=== PATIENT | female | born 1945 | race Caucasian/White ===

== ENCOUNTER 2024-07-08 08:45 | Outpatient (CLI) | payer MEDICARE, SELFPAY ==
--- NOTE | ~2024-07-08 | CT_ITS ---
Clinical Indication: Cough CT Scan of the Chest, Abdomen, and Pelvis with Contrast: Technique: Contiguous sections were acquired throughout the chest, abdomen, and pelvis after intraven ous administration of 100 cc of Omnipaque 350. Dose reduction technique was used on this scan by josseline zambranoing automated exposure control and iterative reconstruction technique. The dose-length product (DL P) was 303.29 mGy-cm. Findings: There are a few mildly prominent mediastinal lymph nodes, nonspecific, for example lymph node to the left side in the subcarinal region measuring 11 mm in short axis (series axial image 49). Precarinal lymph node measures 13 mm in short axis (axial image 38).. No aortic aneurysm or dissection. No large central pulmonary embolus. There is a 2.7 x 1.8 cm lobulated mass in the left subareolar region. There is additional smaller mas s in the more lateral left breast measuring 1.4 cm (axial images 56, 53 respectively). There is a thi rd probable mass slightly more superiorly measuring 1.1 cm (axial image 51). There is no evidence of pleural or pericardial effusion. The lungs are clear. No pulmonary nodules or infiltrates are noted. There is diffuse hepatic steatosis. The spleen, pancreas, gallbladder, adrenals and kidneys are withi n normal limits. There are atherosclerotic calcifications of the aorta. No lymphadenopathy. No bowel obstruction or bowel wall thickening. There is no evidence to suggest acute appendicitis. Urinary bladder is unremarkable. No pelvic mass seen. Status post hysterectomy. No ascites. Impression: 3 separate left breast masses, as above, largest measuring 2.7 x 1.8 cm. Findings are highly suspicio us for breast carcinoma. Further workup with diagnostic mammography and ultrasound recommended. Several mildly prominent mediastinal lymph nodes, as above, nonspecific. Given the aforementioned fin dings, early sorin metastatic disease cannot be completely excluded. Consider PET CT to further evalu ate for hypermetabolic activity, especially depending upon results of advised additional mammographic workup. Diffuse hepatic steatosis. Reviewed, dictated and finalized at location M. TY BUILDING GUARD Impression: 3 separate left breast masses, as above, largest measuring 2.7 x 1.8 cm. Findin gs are highly suspicious for breast carcinoma. Further workup with diagnostic m ammography and ultrasound recommended. Several mildly prominent mediastinal lymph nodes, as above, nonspecific. Given the aforementioned findings, early sorin metastatic disease cannot be completel y excluded. Consider PET CT to further evaluate for hypermetabolic activity, es pecially depending upon results of advised additional mammographic workup. Diffuse hepatic steatosis.
[2024-07-08 09:12] LABS: Estimated Glomerular Filt Rate > 60
== END 2024-07-08 08:46 | disposition home or self-care (01) ==
PROVIDERS: PCP Internal Medicine; Visit Provider Internal Medicine
DX: N63.0 Unspecified lump in unspecified breast (principal); R59.0 Localized enlarged lymph nodes; K76.0 Fatty (change of) liver, not elsewhere classified; R05.9 Cough, unspecified
CPT/HCPCS: 71260; 74177; Q9967

== ENCOUNTER 2024-07-30 09:06 | Outpatient (CLI) | payer MEDICARE, SELFPAY ==
--- NOTE | ~2024-07-30 | MMUS_ITS ---
EXAMINATION: MM diagnostic oh BI w jose juan, US breast LT limited HISTORY: Left breast masses seen on recent CT scan TECHNIQUE: 3-D tomosynthesis images of the breasts were performed and synthetic 2-D images were gener ated. CAD analysis was submitted and interpreted. High resolution limited left breast ultrasound was performed. COMPARISON: CT scan dated 07/08/2024 BREAST PARENCHYMAL COMPOSITION:Dense: The breasts are heterogeneously dense, which may obscure small masses. FINDINGS: MAMMOGRAPHIC FINDINGS: There are 3 masses at the lower, outer quadrant left breast. Largest mass measures 2.1 cm in diameter . Smaller masses measure 1.1 and 1.0 cm in size respectively. No parenchymal abnormality of the right breast seen. ULTRASOUND: At the left breast 4:00 position, 5 cm from the nipple, there is a 1.6 x 1.3 x 1.6 cm somewhat irregu lar hypoechoic solid mass. There is a nearby additional 1.1 x 1.0 x 1.2 cm mass with similar imaging characteristics. At the 5:00 position, 4 cm from the nipple, there is a 1.7 x 1.9 x 1.6 cm heterogene ous hypoechoic solid mass. IMPRESSION: 3 separate solid masses within the lower, outer left breast, as detailed above. These are suspicious for multifocal breast carcinoma. Ultrasound-guided biopsy recommended to establish histologic diagno sis. BI-RADS category 5, highly suggestive of malignancy. Reviewed, dictated and finalized at [facility]. TRIMMER IMPRESSION: 3 separate solid masses within the lower, outer left breast, as detailed above . These are suspicious for multifocal breast carcinoma. Ultrasound-guided biops y recommended to establish histologic diagnosis. BI-RADS category 5, highly suggestive of malignancy.
== END 2024-07-30 09:07 | disposition home or self-care (01) ==
PROVIDERS: PCP Internal Medicine; Visit Provider Internal Medicine
DX: R93.89 Abnormal findings on diagnostic imaging of other specified body structures (principal); N63.23 Unspecified lump in the left breast, lower outer quadrant
CPT/HCPCS: 76642; 77062; 77066; G0279

== ENCOUNTER 2024-08-11 04:47 | Emergency (ER) | payer MEDICARE, SELFPAY ==
--- NOTE | ~2024-08-11 | XR_ITS ---
Portable chest x-ray Comparison: None Clinical History: Weakness Findings: Calcified left basilar granuloma present. Possible COPD. No acute pulmonary pathology othe rwise. Cardiomediastinal silhouette is unremarkable. Bones and soft tissues are unremarkable. Impression: Possible COPD. Calcified left basilar granuloma. Reviewed, dictated and finalized at [facility]. R PATCHER Impression: Possible COPD. Calcified left basilar granuloma.
--- NOTE | 2024-08-11 04:42 | ECG_ITS ---
Test Date: 2024-08-11 07:39:15 Measurements Intervals [place] Rate: 85 P: 149 [place]: 186 QRS: 85 QRSD: 87 T: 97 QT: 371 QTc: 443 Interpretive Statements SINUS RHYTHM POSSIBLE LEFT ATRIAL ENLARGEMENT [-0.1mV P WAVE IN V1/V2] No previous ECG available for comparison Electronically Signed On 08-11-2024 14:26:58 CHEMISTRY DEPARTMENT CHAIR by Grover Perez M.D.
[2024-08-11 04:43] VITALS: BP 154/75; PULSE 79; RESP 18; O2SAT 99
[2024-08-11 04:52] VITALS: PULSE 86
[2024-08-11 05:00] LABS: Basophils Absolute Auto 0.1 K/mm3 (0.0-0.1); Basophils Percent Auto 0.5 % (0.2-1.2); Hematocrit 42.6 % (37.0-47.0); Hemoglobin 14.9 g/dL (12.0-15.0); Immature Granulocyte Absolute 0.06 K/mm3 (0.00-0.031); Immature Granulocyte Percent A 0.4 % (0-0.5); Lymphocytes Absolute Auto 1.01 K/mm3 (0.9-3.2); Lymphocytes Percent Auto 7.2 % (18.3-44.2); Mean Corpuscular Hemoglobin 35.5 pg (26-34); Mean Corpuscular Volume 101.4 fl (80-100); Mean Platelet Volume 8.3 fl (7.4-10.4); Monocytes Percent Auto 6.7 % (2.6-8.5); Neutrophils Percent Auto 85.2 % (45.5-73.1); Platelet Count Result 289 k/mm3 (150-375); Red Cell Distribution Width 13.2 % (11.5-14.5); White Blood Count 14.1 K/mm3 (4.5-10.0)
[2024-08-11 05:14] LABS: Alanine Aminotransferase 16 U/L (6-35); Albumin Level 4.8 g/dL (3.5-5.1); Alkaline Phosphatase 102 U/L (38-126); Anion Gap 13 mmol/L (4-12); Aspartate Amino Transferase 35 U/L (14-36); Bilirubin,Total 0.6 mg/dL (0.2-1.3); Blood Urea Nitrogen 6 mg/dL (7-17); Calcium 9.8 mg/dL (8.4-10.2); Carbon Dioxide 24 mmol/L (22-30); Chloride 99 mmol/L (98-107); Estimated CRCL calculation 61 ml/min; Estimated Glomerular Filt Rate > 60; Glucose 96 mg/dL (65-110); Potassium 4.6 mmol/L (3.4-5.0); Sodium 136 mmol/L (137-145)
[2024-08-11 06:18] LABS: Add Urine Microscopic? YES; Appearance Urine Clear (Clear); Bacteria Urine None Seen /hpf; Bilirubin Urine Negative (Negative); Blood Urine Trace (Negative); Color Urine Yellow (Yellow); Glucose Urine UA Negative (Negative); Ketones Urine Negative (Negative); Leukocyte Esterase Ur Negative LEU/UL (Negative); Nitrate Urine Negative (Negative); Non Pathogenic Casts 0-2; Protein Urine Negative (Negative); RBC Urine 0-2 /hpf (0-2); Specific Grav Ur 1.006 (1.001-1.035); Squamous Epithelial Cell Urine None Seen /hpf (Few); Urobilinogen Urine 0.2 mg/dL (<2.0); WBC Urine 0-5 /hpf (0-3); pH Urine 5.5 (5.0-9.0)
[2024-08-11 07:57] VITALS: BP 166/66; PULSE 85
[2024-08-11 07:58] VITALS: BP 174/85; PULSE 104
[2024-08-11 08:01] VITALS: BP 177/78; PULSE 107
[2024-08-11] MEDS: SODIUM CHLORIDE 0.9% IV 1,000 ML 999 ML IV CONT (08:02)
[2024-08-11 08:40] LABS: Creatine Kinase 384 U/L (30-135)
--- NOTE | 2024-08-11 09:13 | ED_ITS ---
HPI - General Adult General Chief complaint: Weakness Stated complaint: INCREASING WEAKNESS S/P FALL Time Seen by Provider: 08/11/24 07:05 History of Present Illness HPI narrative: Patient is a 79-year-old female who presents ER after falling last night. She is getting up from using the restroom when she fell onto the ground. Unsure if she hit her head but remembers the fall. Reports she was too weak to get up due to a bad left lower extremity so she crawled into her room. She did not have a phone so she did not call for help. She laid on the ground throughout the night. Denies any fevers or chills or sweats. No urinary symptoms. No recent cough. Patient has chronic cough from COPD and smoking. Related Data Allergies Allergy/AdvReac Type Severity Reaction Status Date / Time ampicillin Allergy Intermediate Rash Verified 08/11/24 07:22 meperidine (From Demerol) AdvReac Intermediate Vomiting Verified 08/11/24 07:22 Review of Systems 2 Review of Systems: All systems reviewed & are unremarkable except as noted in HPI and below Constitutional: Constitutional: Reports no additional constitutional complaints ENT: Reports system reviewed and no additional complaints, except as documented Cardiovascular: Cardiovascular: Reports no additional cardiovascular complaints Respiratory: Respiratory: Reports no additional respiratory complaints Musculoskeletal: Musculoskeletal: Reports no additional musculoskeletal complaints Neurologic: Reports system reviewed and no additional complaints, except as documented Exam 2 Narrative: GENERAL: Well-appearing, well-nourished, and in no acute distress. HEAD: Normocephalic, atraumatic. ENT: Mucous membranes moist. NECK: Supple. CHEST: Clear to auscultation. No respiratory distress. HEART: Regular rate and rhythm. Normal peripheral pulses. ABDOMEN: Soft, nontender, nondistended. EXTREMITIES: Normal range of motion. No edema. SKIN: Warm, dry, no rash. NEURO: Alert and oriented x3. PSYCH: Normal mood and affect. Course Course Emergency Course: Patient able to ambulate after hydration. No head injury. Informed patient family of results. Patient has spoken with care coordination about physical therapy/rehab him. Patient prefers to go home. I discussed case with Dr. Thomas and he is happy to help arrange outpatient care for her. Vital Signs Vital signs: Vital Signs Pulse Rate 79 08/11/24 04:43 Respiratory Rate 18 08/11/24 04:43 Blood Pressure 154/75 H 08/11/24 04:43 Pulse Oximetry 99 08/11/24 04:43 Oxygen Delivery Room Air 08/11/24 04:43 Pulse Rate 107 H 08/11/24 08:01 Respiratory Rate 18 08/11/24 04:43 Blood Pressure 177/78 H 08/11/24 08:01 Pulse Oximetry 99 08/11/24 04:43 Oxygen Delivery Room Air 08/11/24 04:43 Medical Decision Making Vital Signs Vital Signs: Vital Signs Pulse Rate 79 08/11/24 04:43 Respiratory Rate 18 08/11/24 04:43 Blood Pressure 154/75 H 08/11/24 04:43 Pulse Oximetry 99 08/11/24 04:43 Oxygen Delivery Room Air 08/11/24 04:43 Pulse Rate 107 H 08/11/24 08:01 Respiratory Rate 18 08/11/24 04:43 Blood Pressure 177/78 H 08/11/24 08:01 Pulse Oximetry 99 08/11/24 04:43 Oxygen Delivery Room Air 08/11/24 04:43 Lab Data 08/11/24 04:55 08/11/24 04:55 Labs: Lab Results 08/11/24 08/11/24 Range/Units 04:55 06:09 WBC 14.1 H (4.5-10.0) K/mm3 RBC 4.20 (4.2-5.4) M/mm3 Hgb 14.9 (12.0-15.0) g/dL Hct 42.6 (37.0-47.0) % MCV 101.4 H (80-100) fl MCH 35.5 H (26-34) pg MCHC 35.0 (32-36) g/dl RDW 13.2 (11.5-14.5) % Plt Count 289 (150-375) k/mm3 MPV 8.3 (7.4-10.4) fl Immature Gran % (Auto) 0.4 (0-0.5) % Neut % (Auto) 85.2 H (45.5-73.1) % Lymph % (Auto) 7.2 L (18.3-44.2) % [place] % (Auto) 6.7 (2.6-8.5) % Eos % (Auto) 0.0 (0-4.4) % Baso % (Auto) 0.5 (0.2-1.2) % Lymph # (Auto) 1.01 (0.9-3.2) K/mm3 [place] # (Auto) 1.0 H (0.1-0.6) K/mm3 Eos # (Auto) 0.0 (0-0.3) K/mm3 Baso # (Auto) 0.1 (0.0-0.1) K/mm3 Abs Immat Gran (auto) 0.06 H (0.00-0.031) K/mm3 Absolute Neuts (auto) 12.0 H (1.3-6.7) K/mm3 Absolute Nucleated RBC 0.000 (0.0-0.012) K/mm3 Nucleated RBC % 0.0 (0.0-0.2) % Sodium 136 L (137-145) mmol/L Potassium 4.6 (3.4-5.0) mmol/L Chloride 99 (98-107) mmol/L Carbon Dioxide 24 (22-30) mmol/L Anion Gap 13 H (4-12) mmol/L BUN 6 L (7-17) mg/dL Creatinine 0.46 L (0.7-1.0) mg/dL Estim Creat Clear Calc 61 ml/min Estimated GFR > 60 (59 - ) Glucose 96 (65-110) mg/dL Calcium 9.8 (8.4-10.2) mg/dL Total Bilirubin 0.6 (0.2-1.3) mg/dL AST 35 (14-36) U/L ALT 16 (6-35) U/L Alkaline Phosphatase 102 (38-126) U/L Total Creatine Kinase 384 H (30-135) U/L Total Protein 8.0 (6.3-8.2) g/dL Albumin 4.8 (3.5-5.1) g/dL Urine Color Yellow (Yellow) Urine Appearance Clear (Clear) Urine pH 5.5 (5.0-9.0) Ur Specific [place] 1.006 (1.001-1.035) Urine Protein Negative (Negative) mg/dL Urine Glucose (UA) Negative (Negative) mg/dL Urine Ketones Negative (Negative) mg/dL Ur Blood (Man) Trace (Negative) Urine Nitrate Negative (Negative) Urine Bilirubin Negative (Negative) Urine Urobilinogen 0.2 (<2.0) mg/dL Leukocyte Esterase Rfl Negative (Negative) MICHELINE/UL Urine RBC 0-2 (0-2) /hpf Urine WBC 0-5 (0-3) /hpf Ur Squamous Epith Cells None seen (Few) /hpf Urine Bacteria None seen /hpf Urine Casts 0-2 Imaging Data Radiologist's impression: ITS Impressions Chest X-Ray 08/11/24 06:29 Impression: Possible COPD. Calcified left basilar granuloma. Discharge Plan Discharge Clinical Impression: Fall, Weakness Patient Disposition: Hospice - Home Condition: Stable Instructions: General Patient Instructions Additional Instructions: Return the ER if you have recurrent fall, you have fever over 100.4? F, he can not keep down food water, you lose consciousness, or you have additional concerns. Patient Language: Syriac Follow-up/Referrals: William,MD Amos [Primary Care Provider] - 1 Week
--- NOTE | 2024-08-11 09:13 | PC.NURSE ---
patient unable to ambulate from bed to bathroom. patient feels too weak to walk. MD Harden notified at this time.
--- NOTE | 2024-08-11 10:24 | PC.NURSE ---
patient ambulatory with steady gait and standby assistance at this time.
--- NOTE | 2024-08-11 11:01 | PCCCNOTE ---
1101-Called to the pt's room d/t the pt c/o feeling weak and wanting to discuss in-patient rehab options. Pt is currently able to walk for short distances without help. Spoke with the family. Stated the pt had a recent fall and was on the floor for about 6hrs and needed EMS assistance to get her up d/t living alone. ED provider stated there was no medical reason to admit the pt at this time. Spoke with family and stated the pt would need an PT/OT eval, auth from insurance for possible short term admit. Provider stated the pt may not meet for In-patient however may be a better candidate for in home PT/OT and was agreeable to f/u with the PCP for this order. The eldest daughter stated they are calling a family meeting for the pt's safety, calling [facility] for a possible call alert bracelet, meals on wheels and to increase her water intake instead of ruiz light beer. Family denies having any further case management needs at this time.-ji.
[2024-08-11 11:15] VITALS: BP 145/69; PULSE 80; RESP 18; O2SAT 99
== END 2024-08-11 11:30 | disposition home or self-care (01) ==
PROVIDERS: Emergency Medicine; Emergency Provider Emergency Medicine; PCP Internal Medicine
DX: R53.1 Weakness (principal); W18.39XA Other fall on same level, initial encounter; J44.9 Chronic obstructive pulmonary disease, unspecified
CPT/HCPCS: 36415; 71045; 80053; 81001; 82550; 85025; 93005; 96360; 99284; J7030

== ENCOUNTER 2024-08-18 08:17 | Outpatient (CLI) | payer MEDICARE, SELFPAY ==
--- NOTE | ~2024-08-18 | MMUS_ITS ---
EXAMINATION: MM post biopsy diagnostic LT, US breast bx add lesion LT, US breast bx add lesion LT, US breast biopsy LT w image DATE: 08/18/2024 09:59 INDICATION: Left breast masses. TECHNIQUE: The procedure including the risks, benefits, and alternatives was discussed with the patie nt. Risks discussed included bleeding and infection. The patient understood the risks and agreed to p roceed. The skin of the left breast was prepped and draped in usual sterile fashion. Anesthetic was administered with 1% lidocaine at the skin and 1% lidocaine with epinephrine in the deeper tissue. A 10-gauge vacuum-assisted core biopsy needle was then used to obtain 3 core biopsy specimens of the m ass at 5:00, 4 cm from the nipple under continuous sonographic guidance. A Mammotome HydroMARK open c oil marker was placed under sonographic guidance. A 10-gauge vacuum-assisted core biopsy needle was then used to obtain 4 core biopsy specimens of the mass at 4:00, 4 cm from the nipple under continuous sonographic guidance. A Mammotome HydroMARK butte rfly marker was placed under sonographic guidance. A 10-gauge vacuum-assisted core biopsy needle was then used to obtain 3 core biopsy specimens of the mass at 4:00, 5 cm from the nipple under continuous sonographic guidance. A Mammotome HydroMARK barre l marker was placed under sonographic guidance. The entry site was cleaned and dressed. There were n o immediate complications. A two-view mammogram was obtained to document marker placement. FINDINGS: Ultrasound images demonstrate the needle in a 1.9 cm mass in left breast at 5:00, 4 cm from the nipple. Ultrasound images demonstrate the needle in a 1.2 cm mass in left breast at 4:00, 4 cm f rom the nipple. Ultrasound images demonstrate the needle in a 1.6 cm mass in left breast at 4:00, 5 c m from the nipple. Breast composition: There are scattered areas of fibroglandular density. Mammogram: A butterfly marker is seen in one of the masses. There are 2 markers are not identified. IMPRESSION: 1. Successful ultrasound-guided vacuum-assisted biopsy of a 1.9 cm mass in left breast at 5:00, 4 cm from the nipple. 2. Successful ultrasound-guided vacuum-assisted biopsy of 1.2 cm mass in left breast at 4:00, 4 cm fr om the nipple with post procedure mammogram for marker placement. 3. Successful ultrasound-guided vacuum-assisted biopsy of a 1.6 cm mass in left breast at 4:00, 5 cm from the nipple. Reviewed, dictated and finalized at location B. RELINER IMPRESSION: 1. Successful ultrasound-guided vacuum-assisted biopsy of a 1.9 cm mass in left breast at 5:00, 4 cm from the nipple. 2. Successful ultrasound-guided vacuum-assisted biopsy of 1.2 cm mass in left b reast at 4:00, 4 cm from the nipple with post procedure mammogram for marker pl acement. 3. Successful ultrasound-guided vacuum-assisted biopsy of a 1.6 cm mass in left breast at 4:00, 5 cm from the nipple. IMPRESSION: 1. Successful ultrasound-guided vacuum-assisted biopsy of a 1.9 cm mass in left breast at 5:00, 4 cm from the nipple. 2. Successful ultrasound-guided vacuum-assisted biopsy of 1.2 cm mass in left b reast at 4:00, 4 cm from the nipple with post procedure mammogram for marker pl acement. 3. Successful ultrasound-guided vacuum-assisted biopsy of a 1.6 cm mass in left breast at 4:00, 5 cm from the nipple. IMPRESSION: 1. Successful ultrasound-guided vacuum-assisted biopsy of a 1.9 cm mass in left breast at 5:00, 4 cm from the nipple. 2. Successful ultrasound-guided vacuum-assisted biopsy of 1.2 cm mass in left b reast at 4:00, 4 cm from the nipple with post procedure mammogram for marker pl acement. 3. Successful ultrasound-guided vacuum-assisted biopsy of a 1.6 cm mass in left breast at 4:00, 5 cm from the nipple.
--- OUTSIDE RECORDS SUMMARY | 2024-08-19 21:46 | XMS_ITS | Clinical Summary ---
Author Organization [facility] [employer] Address [address] [place] [address] Care Team Providers Care Yard Person Name Role Phone Amos Thomas MD Primary Care Provider [phone] Source Comments [facility] [facility],non-owned Affiliates and Associated Physician Practices is amultiple site organization consisting of ambulatory clinics and hospital sitesin [place], [place], [place] and [place]. This disclosure is being madepursuant to the Care Everywhere program and may not contain all information available regarding this patient. Last updated 18.[facility] [facility] Allergies Active Allergy Reactions Criticality Noted Date Comments Meperidine Nausea and/or Vomiting Low 05/31/2016 Sulfa Drugs Other Low 05/31/2016 Yeast infection as a child Medications * Be aware that medications may not be up to date on this document. Alwaysverify current medications with the patient. Medication Sig Dispensed Refills Start Date End Date Status hydroCHLOROthiazide (HYDRODIURIL) 25 MG tablet Take 25 mg by mouth DAILY. 05/31/2016 Active budesonide-formoterol (SYMBICORT) 80-4.5 MCG/ACT inhaler Inhale by mouth. 05/31/2016 Act sarah Cholecalciferol (VITAMIN D3) 400 UNITS Take by mouth DAILY. 05/31/2016 Active amLODIPine (NORVASC) 10 MG tablet Take 10 mg by mouth DAILY. 05/31/2016 Active Multiple Vitamins-Minerals (CENTRUM SILVER) TABS Take 1 tablet by mouth once daily Active Budesonide-Formoterol Fumarate (SYMBICORT IN) Inhale by mouth as needed Active Active Problems Problem Noted Date Diagnosed Date Neoplasm of uncertain behavior of skin 7 Xerosis cutis 12/13/2016 Actinic keratosis 12/13/2016 Other seborrheic keratosis 07/01/2016 Other melanin hyperpigmentation 07/01/2016 Melanocytic nevi of trunk 07/01/2016 Family History Medical History Relation Name Comments Allergy (Severe) Neg Hx CVA Neg Hx Cancer Neg Hx Cancer - Breast Neg Hx Cancer - Skin, Melanoma Neg Hx Cancer - Skin, Non Melanoma Neg Hx Eczema Neg Hx Hemophilia Neg Hx Psoriasis Neg Hx Rashes/Skin Problems Neg Hx Social History Tobacco Use Types Packs/Day Years Used Date Smoking Tobacco: Every Day Cigarettes Alcohol Use Standard Drinks/Week Comments Yes 10 (1 standard drink = 0.6 oz pu re alcohol) Sex and Gender Information Value Date Recorded Sex Assigned at Not on file Gender Identity Not on file Sexual Orientation Not on file Plan of Treatment Health Maintenance Due Date Last Done Comments BONE DENSITY TESTING 1945 HEPATITIS C SCREENING 02/22/1965 DTAP/TDAP/TD VACCINES (1 - Tdap) 1966 PNEUMOCOCCAL VACCINE 50+ (1 of 2 - PCV) 1966 ZOSTER VACCINE (1 of 2) 1997 Respiratory Syncytial Virus (RSV) Vaccine Pt: or over 60 yrs (1 - 1-dose 75+ series) 2022 COVID-19 VACCINE (2 - season) 2024 09/29/2020 INFLUENZA VACCINE (#1) 2024 0, 05/25/2019, 05/18/2018, Additional history exists DEPRESSION SCREENING 07/28/2024 MEDICARE AWV ? CALENDAR YEAR 2024 HEPATITIS B VACCINE Aged Out No longe r eligible based on patient's age to complete this topic HIB VACCINE Aged Out No longer eligi ble based on patient's age to complete this topic HPV VACCINE Aged Out No longer eligi ble based on patient's age to complete this topic MENINGOCOCCAL (Group B) VACCINE Aged Out No longer eligible based on patient's age to complete this topic MENINGOCOCCAL VACCINE Aged Out No vignesh esa eligible based on patient's age to complete this topic Care Teams Yard Person Relationship Specialty Start Date End Date Amos Thomas MD PCP - General 03/19/16
--- OUTSIDE RECORDS SUMMARY | 2024-08-19 21:47 | XMS_ITS | Data Portability ---
Author Organization [facility]EL[facility] Jalloh Address [address], [place] [address] Care Team Providers Care Sand Molder Name Role Phone LINDA THOMAS Primary Care Provider Unavailabl e Assessment Encounter Date Assessment Date Assessment LastModified by Organization Details LastModified Time 01/06/2024 01/06/2024 continue current therapy. Good friend support warned her ill effects of tobacco which would include but not limited to increased tumors of multiple organ systems increase incidence heart attack stroke that could lead to sudden or chronic medical illness follow up with me in 3-4 months Not available 02/01/2024 13:16:43 02/10/2024 02/10/2024 screenings immunizations discussed at length quitting tobacco and Medicare wellness checklist discussed keep her regular appointment [email or web address] Not available 02/15/2024 13:27:01 03/09/2024 03/09/2024 her chronic medical problems appear to be stable we will continue with current therapy does not want any imaging of her back she will follow up with me in 4 months [email or web address] Not available 03/09/2024 21:53:10 06/09/2024 06/09/2024 Blood pressure is controlled. We will obtain blood work. Also CT scans of chest abdomen pelvis 4 weight loss abdominal pain and for her chronic cough. Smoking cessation discussed at length again. PHQ 6 positive we discussed that she does not want to go on a medications she will follow up with me 3 months [email or web address] Not available 06/20/2024 16:33:53 08/13/2024 08/13/2024 home health. Blood pressure stable COPD continue with inhalers. Quitting tobacco care instructions discussed at length that she needs to really cut down if not stop smoking she is drinking 8-10 beers a day that was discussed at length that she needs to cut that out as well. I will see her back in a month Not available 08/14/2024 12:56:59 Plan of Treatment Reminders Order Date Submit Date Provider Last Modified By Organization Details Last Modified Time Details Appointments ANY 15 2024 09:30A Luz Thomas MD Not available Not available Not available Lab CBC w/ auto diff 2023 024 [facility], [address], [place], [address], 06/10/2024 08:31:44 CMP, serum or plasma 2023 024 [facility], [address], [place], [address], 06/10/2024 08:31:42 lipid panel, serum 2023 [facility], [address], [place], [address], 06/10/2024 08:31:40 urinalysi s, microscop ic 2023 024 [facility], [address], [place], [address], 06/10/2024 08:31:43 Referral home health referral - Please call pts daughter [phone]. 2024 025 [facility], [address] [place], [address], 08/17/2024 10:56:17 Procedures None recorded. Surgeries None recorded. Imaging CT, abdomen + pelvis, w/ contrast 2023 024 [facility] (Imaging), [address], [place], [address], 07/08/2024 13:07:30 CT, chest, w/ contrast [address] (Imaging), [address], [place], [address], 07/08/2024 15:25:31 Medication Orders None recorded. Patient TargetsNo targets recorded. Patient Instructions Encounter Date Encounter Id Patient Instructions Last Modified By Organization Details Last Modified Time 02/10/2024 [id number] Quitting Tobacco : Care Instructions Not available 02/10/2024 12:44:08 Medicare Wellnes s Preventive Checklist [email or web address] Not available 02/10/2024 12:44:08 06/09/2024 [id number] Quitting Tobacco : Care Instructions [email or web address] Not available 06/09/2024 15:05:51 A healthy lifestyle: care instructions [email or web address] Not available 06/09/2024 15:05:51 08/13/2024 [id number] Quitting Tobacco : Care Instructions [email or web address] Not available 08/13/2024 16:15:18 Reason for Referral Home Health Referral for Rec urrent falls Please call pts daughter [phone]. Referring Physician: Linda Thomas, Internal Medicine, Encounter Date: 08/13/2024 Results Created Date Observation Date Name Description Value Unit Range Abnormal Flag Note LastModifiedBy Organization Detail LastModifiedTime 06/09/20 24 06/10/2024 LIPID PANEL cholesterol, total 139 mg/dL 100-19 9 Not Available [facility] ([facility]) [address], [place], [address], 06/10/2024 08:31:40 06/09/20 24 06/10/2024 LIPID PANEL triglyceride s 48 mg/dL 0-149 Not Available [facility] ([facility]) [address], [place], [address], 06/10/2024 08:31:40 06/09/20 24 06/10/2024 LIPID PANEL HDL cholesterol 95 mg/dL >39 Not Available [facility] ([facility]) [address] [place], [address], 06/10/2024 08:31:40 06/09/20 24 06/10/2024 LIPID PANEL VLDL cholesterol graham 11 mg/dL 5-40 Not Available [facility] ([facility]) [address] [place], [address], 06/10/2024 08:31:40 06/09/20 24 06/10/2024 LIPID PANEL LDL chol calc ([facility]) 33 mg/dL 0-99 Not Available [facility] ([facility]) [address] [address], [place], [address], 06/10/2024 08:31:40 06/09/20 24 06/10/2024 COMP. METAB OLIC PANEL (14) glucose 105 mg/dL 70-99 above high normal Not Available [facility] ([facility]) [address] [place], [address], 06/10/2024 08:31:42 06/09/20 24 06/10/2024 COMP. METAB OLIC PANEL (14) BUN 7 mg/dL 8-27 below low normal Not Available [facility] ([facility]) [address] [place], [address], 06/10/2024 08:31:42 06/09/20 24 06/10/2024 COMP. METAB OLIC PANEL (14) creatinine 0.56 mg/dL 0.57-1 .00 below low normal Not Available [facility] ([facility]) [address] [place], [address], 06/10/2024 08:31:42 06/09/20 24 06/10/2024 COMP. METAB OLIC PANEL (14) eGFR 94 mL/mi n/1.7 3 >59 Not Available [facility] ([facility]) [address] [place], [address], 06/10/2024 08:31:42 06/09/20 24 06/10/2024 COMP. METAB OLIC PANEL (14) BUN/creatini ne ratio 13 12-28 Not Available [facility] ([facility]) [address], [place], [address], 06/10/2024 08:31:42 06/09/20 24 06/10/2024 COMP. METAB OLIC PANEL (14) sodium 134 mmol/ L 134-14 4 Not Available [facility] ([facility]) [address], [place], [address], 06/10/2024 08:31:42 06/09/20 24 06/10/2024 COMP. METAB OLIC PANEL (14) potassium 4.3 mmol/ L 3.5-5. 2 Not Available [facility] ([facility]) [address] [facility], [place], [address], 06/10/2024 08:31:42 06/09/20 24 06/10/2024 COMP. METAB OLIC PANEL (14) chloride 94 mmol/ L 96-106 below low normal Not Available [facility] ([facility]) [address], [place], [address], 06/10/2024 08:31:42 06/09/20 24 06/10/2024 COMP. METAB OLIC PANEL (14) carbon dioxide, total 24 mmol/ L 20-29 Not Available [facility] ([facility]) [address], [place], [address], 06/10/2024 08:31:42 06/09/20 24 06/10/2024 COMP. METAB OLIC PANEL (14) calcium 9.5 mg/dL 8.7-10 .3 Not Available [facility] ([facility]) [address] [place], [address], 06/10/2024 08:31:42 06/09/20 24 06/10/2024 COMP. METAB OLIC PANEL (14) protein, total 6.9 g/dL 6.0-8. 5 Not Available [facility] ([facility]) [address], [place], [address], 06/10/2024 08:31:42 06/09/20 24 06/10/2024 COMP. METAB OLIC PANEL (14) albumin 4.1 g/dL 3.8-4. 8 Not Available [facility] ([facility]) [address], [place], [address], 06/10/2024 08:31:42 06/09/20 24 06/10/2024 COMP. METAB OLIC PANEL (14) globulin, total 2.8 g/dL 1.5-4. 5 Not Available [facility] ([facility]) [address], [place], [address], 06/10/2024 08:31:42 06/09/20 24 06/10/2024 COMP. METAB OLIC PANEL (14) bilirubin, total 0.4 mg/dL 0.0-1. 2 Not Available [facility] ([facility]) [address], [place], [address], 06/10/2024 08:31:42 06/09/20 24 06/10/2024 COMP. METAB OLIC PANEL (14) alkaline phosphatase 95 IU/L 44-121 Not Available [facility] ([facility]) [address], [place], [address], 06/10/2024 08:31:42 06/09/20 24 06/10/2024 COMP. METAB OLIC PANEL (14) AST (SGOT) 16 IU/L 0-40 Not Available [facility] ([facility]) [address] [place], [address], 06/10/2024 08:31:42 06/09/20 24 06/10/2024 COMP. METAB OLIC PANEL (14) ALT (SGPT) 11 IU/L 0-32 Not Available [facility] ([facility]) [address] [place], [address], 06/10/2024 08:31:42 06/09/20 24 06/10/2024 MICRO SCOPI C EXAMI NATIO N WBC 6-10 /hpf 0-5 abnormal Not Available [facility] ([facility]) [address] [facility], [place], [address], 06/10/2024 08:31:43 06/09/2006/10/2024 MICRO SCOPI C EXAMI NATIO N RBC NONE SEEN /hpf 0-2 Not Available [facility] ([facility]) [address], [place], [address], 06/10/2024 08:31:43 06/09/2006/10/2024 MICRO SCOPI C EXAMI NATIO N epithelial cells (non renal) 0-10 /hpf 0-10 Not Available [facility] ([facility]) [address], [place], [address], 06/10/2024 08:31:43 06/09/20 24 06/10/2024 MICRO SCOPI C EXAMI NATIO N casts NONE SEEN /lpf nonese en Not Available [facility] ([facility]) [address], [place], [address], 06/10/2024 08:31:43 06/09/2006/10/2024 MICRO SCOPI C EXAMI NATIO N bacteria NONE SEEN nonese en/few Not Available [facility] ([facility]) [address] [facility], [place], [address], 06/10/2024 08:31:43 06/09/20 24 06/10/2024 CBC WITH DIFFE RENTI AL/PL ATELE T WBC 17.1 x10e3 /uL 3.4-10 .8 above high normal Not Available [facility] ([facility]) [address] [facility], [place], [address], 06/10/2024 08:31:44 06/09/2006/10/2024 CBC WITH DIFFE RENTI AL/PL ATELE T RBC 3.90 x10e6 /uL 3.77-5 .28 Not Available [facility] ([facility]) [address] [facility], [place], [address], 06/10/2024 08:31:44 06/09/20 24 06/10/2024 CBC WITH DIFFE RENTI AL/PL ATELE T hemoglobin 13.8 g/dL 11.1-1 5.9 Not Available [facility] ([facility]) [address] [place], [address], 06/10/2024 08:31:44 06/09/20 24 06/10/2024 CBC WITH DIFFE RENTI AL/PL ATELE T hematocrit 40.2 % 34.0-4 6.6 Not Available [facility] ([facility]) [address] [place], [address], 06/10/2024 08:31:44 06/09/20 24 06/10/2024 CBC WITH DIFFE RENTI AL/PL ATELE T MCV 103 fL 79-97 above high normal Not Available [facility] ([facility]) [address] [place], [address], 06/10/2024 08:31:44 06/09/20 24 06/10/2024 CBC WITH DIFFE RENTI AL/PL ATELE T MCH 35.4 pg 26.6-3 3.0 above high normal Not Available [facility] ([facility]) [address] [place], [address], 06/10/2024 08:31:44 06/09/20 24 06/10/2024 CBC WITH DIFFE RENTI AL/PL ATELE T MCHC 34.3 g/dL 31.5-3 5.7 Not Available [facility] ([facility]) [address] [place], [address], 06/10/2024 08:31:44 06/09/20 24 06/10/2024 CBC WITH DIFFE RENTI AL/PL ATELE T RDW 11.6 % 11.7-1 5.4 below low normal Not Available [facility] ([facility]) [address], [place], [address], 06/10/2024 08:31:44 06/09/20 24 06/10/2024 CBC WITH DIFFE RENTI AL/PL ATELE T platelets 353 x10e3 /uL 150-45 0 Not Available [facility] ([facility]) [address] [facility], [place], [address], 06/10/2024 08:31:44 06/09/20 24 06/10/2024 CBC WITH DIFFE RENTI AL/PL ATELE T neutrophils 76 % notest ab. Not Available [facility] ([facility]) [address], [place], [address], 06/10/2024 08:31:44 06/09/20 24 06/10/2024 CBC WITH DIFFE RENTI AL/PL ATELE T lymphs 11 % notest ab. Not Available [facility] ([facility]) [address], [place], [address], 06/10/2024 08:31:44 06/09/20 24 06/10/2024 CBC WITH DIFFE RENTI AL/PL ATELE T monocytes 12 % notest ab. Not Available [facility] ([facility]) [address] [facility], [place], [address], 06/10/2024 08:31:44 06/09/20 24 06/10/2024 CBC WITH DIFFE RENTI AL/PL ATELE T eos 0 % notest ab. Not Available [facility] ([facility]) [address], [place], [address], 06/10/2024 08:31:44 06/09/20 24 06/10/2024 CBC WITH DIFFE RENTI AL/PL ATELE T basos 0 % notest ab. Not Available [facility] ([facility]) [address] [place], [address], 06/10/2024 08:31:44 06/09/20 24 06/10/2024 CBC WITH DIFFE RENTI AL/PL ATELE T neutrophils (absolute) 13.0 x10e3 /uL 1.4-7. 0 above high normal Not Available [facility] ([facility]) [address] [place], [address], 06/10/2024 08:31:44 06/09/20 24 06/10/2024 CBC WITH DIFFE RENTI AL/PL ATELE T lymphs (absolute) 1.9 x10e3 /uL 0.7-3. 1 Not Available [facility] ([facility]) [address] [place], [address], 06/10/2024 08:31:44 06/09/20 24 06/10/2024 CBC WITH DIFFE RENTI AL/PL ATELE T monocytes(ab solute) 2.0 x10e3 /uL 0.1-0. 9 above high normal Not Available [facility] ([facility]) [address] [place], [address], 06/10/2024 08:31:44 06/09/20 24 06/10/2024 CBC WITH DIFFE RENTI AL/PL ATELE T eos (absolute) 0.0 x10e3 /uL 0.0-0. 4 Not Available [facility] ([facility]) [address] [place], [address], 06/10/2024 08:31:44 06/09/20 24 06/10/2024 CBC WITH DIFFE RENTI AL/PL ATELE T baso (absolute) 0.1 x10e3 /uL 0.0-0. 2 Not Available [facility] ([facility]) [address] [place], [address], 06/10/2024 08:31:44 06/09/20 24 06/10/2024 CBC WITH DIFFE RENTI AL/PL ATELE T immature granulocytes 1 % notest ab. Not Available [facility] ([facility]) [address], [place], [address], 06/10/2024 08:31:44 06/09/20 24 06/10/2024 CBC WITH DIFFE RENTI AL/PL ATELE T immature grans (abs) 0.1 x10e3 /uL 0.0-0. 1 Not Available [facility] ([facility]) [address] [facility], [place], [address], 06/10/2024 08:31:44 07/16/20 24 07/17/2024 CBC WITH DIFFE RENTI AL/PL ATELE T WBC 14.2 x10e3 /uL 3.4-10 .8 above high normal Not Available [facility] ([facility]) [address] [facility], [place], [address], 07/17/2024 06:19:27 07/16/20 24 07/17/2024 CBC WITH DIFFE RENTI AL/PL ATELE T RBC 4.03 x10e6 /uL 3.77-5 .28 Not Available [facility] ([facility]) [address] [place], [address], 07/17/2024 06:19:27 07/16/20 24 07/17/2024 CBC WITH DIFFE RENTI AL/PL ATELE T hemoglobin 14.0 g/dL 11.1-1 5.9 Not Available [facility] ([facility]) [address] [place], [address], 07/17/2024 06:19:27 07/16/20 24 07/17/2024 CBC WITH DIFFE RENTI AL/PL ATELE T hematocrit 41.6 % 34.0-4 6.6 Not Available [facility] ([facility]) [address] [place], [address], 07/17/2024 06:19:27 07/16/20 24 07/17/2024 CBC WITH DIFFE RENTI AL/PL ATELE T MCV 103 fL 79-97 above high normal Not Available [facility] ([facility]) [address] [facility], [place], [address], 07/17/2024 06:19:27 07/16/20 24 07/17/2024 CBC WITH DIFFE RENTI AL/PL ATELE T MCH 34.7 pg 26.6-3 3.0 above high normal Not Available [facility] ([facility]) [address] [facility], [place], [address], 07/17/2024 06:19:27 07/16/20 24 07/17/2024 CBC WITH DIFFE RENTI AL/PL ATELE T MCHC 33.7 g/dL 31.5-3 5.7 Not Available [facility] ([facility]) [address] [facility], [place], [address], 07/17/2024 06:19:27 07/16/20 24 07/17/2024 CBC WITH DIFFE RENTI AL/PL ATELE T RDW 12.2 % 11.7-1 5.4 Not Available [facility] ([facility]) [address] [facility], [place], [address], 07/17/2024 06:19:27 07/16/20 24 07/17/2024 CBC WITH DIFFE RENTI AL/PL ATELE T platelets 389 x10e3 /uL 150-45 0 Not Available [facility] ([facility]) [address] [place], [address], 07/17/2024 06:19:27 07/16/20 24 07/17/2024 CBC WITH DIFFE RENTI AL/PL ATELE T neutrophils 75 % notest ab. Not Available [facility] ([facility]) [address] [facility], [place], [address], 07/17/2024 06:19:27 07/16/20 24 07/17/2024 CBC WITH DIFFE RENTI AL/PL ATELE T lymphs 14 % notest ab. Not Available [facility] ([facility]) [address], [place], [address], 07/17/2024 06:19:27 07/16/20 24 07/17/2024 CBC WITH DIFFE RENTI AL/PL ATELE T monocytes 9 % notest ab. Not Available [facility] ([facility]) [address] [facility] [facility], [place], [address], 07/17/2024 06:19:27 07/16/20 24 07/17/2024 CBC WITH DIFFE RENTI AL/PL ATELE T eos 0 % notest ab. Not Available [facility] ([facility]) [address] [facility], [place], [address], 07/17/2024 06:19:27 07/16/20 24 07/17/2024 CBC WITH DIFFE RENTI AL/PL ATELE T basos 1 % notest ab. Not Available [facility] ([facility]) [address] [facility], [place], [address], 07/17/2024 06:19:27 07/16/20 24 07/17/2024 CBC WITH DIFFE RENTI AL/PL ATELE T neutrophils (absolute) 10.8 x10e3 /uL 1.4-7. 0 above high normal Not Available [facility] ([facility]) [address] [facility], [place], [address], 07/17/2024 06:19:27 07/16/20 24 07/17/2024 CBC WITH DIFFE RENTI AL/PL ATELE T lymphs (absolute) 2.0 x10e3 /uL 0.7-3. 1 Not Available [facility] ([facility]) [address] [place], [address], 07/17/2024 06:19:27 07/16/20 24 07/17/2024 CBC WITH DIFFE RENTI AL/PL ATELE T monocytes(ab solute) 1.2 x10e3 /uL 0.1-0. 9 above high normal Not Available [facility] ([facility]) [address] [facility], [place], [address], 07/17/2024 06:19:27 07/16/20 24 07/17/2024 CBC WITH DIFFE RENTI AL/PL ATELE T eos (absolute) 0.0 x10e3 /uL 0.0-0. 4 Not Available [facility] ([facility]) [address] [facility], [place], [address], 07/17/2024 06:19:27 07/16/20 24 07/17/2024 CBC WITH DIFFE RENTI AL/PL ATELE T baso (absolute) 0.1 x10e3 /uL 0.0-0. 2 Not Available [facility] ([facility]) [address] [facility], [place], [address], 07/17/2024 06:19:27 07/16/20 24 07/17/2024 CBC WITH DIFFE RENTI AL/PL ATELE T immature granulocytes 1 % notest ab. Not Available [facility] ([facility]) [address] [facility], [place], [address], 07/17/2024 06:19:27 07/16/20 24 07/17/2024 CBC WITH DIFFE RENTI AL/PL ATELE T immature grans (abs) 0.1 x10e3 /uL 0.0-0. 1 Not Available [facility] ([facility]) [address] [facility], [place], [address], 07/17/2024 06:19:27 02/05/20 24 04/17/2022 colon oscop y proce dure (PROC ) No observ ation record ed. Not Available 2023 10:45:26 07/08/20 24 07/08/2024 CT, abdom en + pelvi s, w/ contr ast No observ ation record ed. [address], [place], [address], 07/12/2024 16:36:34 07/08/20 24 07/08/2024 CT, abdom en + pelvi s, w/ contr ast No observ ation record ed. [address], [place], [address], 07/12/2024 16:36:35 07/30/19 25 07/30/2024 US, breas t, bilat eral No observ ation record ed. [facility] [address], [place], [address], 08/02/2024 15:58:40 08/02/19 MAMMO , diagn ostic , bilat eral No observ ation record ed. [facility] [address], [place], [address], 08/02/2024 15:58:40 08/11/19 25 08/11/2024 XR, chest No observ ation record ed. [address], [place], [address], 08/11/2024 22:53:15 08/18/19 25 08/18/2024 biops y, breas t, w/ ultra sound jo nce (PROC ) No observ ation record ed. [address], [place], [address], 08/18/2024 16:32:06 08/18/19 25 08/18/2024 biops y, breas t, w/ ultra sound jo nce (PROC ) No observ ation record ed. [address], [place], [address], 08/18/2024 15:24:16 Result Notes None recorded. Problems Name Problem SNOMED Code Status Onset Date Resolution Date Notes Provider Name and Address Organization Details Recorded Time Essential hypertension 55476183 Active 2023 Linda Thomas MD Attn: Noa stallworth,[address] [facility], [place], [address], [place] - [facility] 4 13:16:43 Chronic low back pain 425170407 Active 2023 Linda Thomas MD Attn: Griffinjaspal stallworth,[address] [facility], [place], [address], [place] [facility] 4 13:16:44 Hyponatremia 92256225 Active 2023 Linda Thomas MD Attn: Griffinjaspal stallworth,[address] [facility], [place], [address], [facility] - [facility] 4 13:16:45 Nicotine dependence 26696624 Active 2023 Linda Thomas MD Attn: Griffinjaspal stallworth,[address] [place], [address], [place] - [facility] 4 13:16:47 Chronic obstructive pulmonary disease 56787572 Active 2023 Linda Thomas MD Attn: Griffinjaspal stallworth,[address] [facility], [place], [address], [facility] - [facility] 4 13:16:49 Cough 85406931 Active 2023 Mckenna Delgado MA null, [place] - [facility] 4 13:10:49 Abdominal pain 68273950 Active 2023 LYNN Francois, [place] - [facility] 4 13:10:49 Problem Notes None recorded. Procedures Surgical History Date Name Laterality Status Provider Name and Address Organization Details Recorded Time Knee Surgery completed LYNN Ramos [facility] 10/06/2023 12:21:01 Tonsillectomy completed Ivan Castanon MA [facility] 10/06/2023 12:21:09 Dilation and Curettage completed Ivan Castanon MA [facility] 10/06/2023 12:21:16 Total hysterectomy completed Lilliana Castanon MA [place] - [facility] 10/06/2023 12:21:23 Imaging Results Imaging Date Name Status LastModified by Organiz [facility] Details LastModified Time 04/17/2022 colonoscopy procedure (PROC) completed [facility] Information not available 02/05/2024 10:45:26 07/08/2024 CT, abdomen + pelvis, w/ contrast completed [address], [address], 07/12/2024 16:36:34 07/08/2024 CT, abdomen + pelvis, w/ contrast completed [address], [address], 07/12/2024 16:36:35 07/30/2024 US, breast, bilateral completed [facility] [address], [place], [address], 08/02/2024 15:58:40 08/02/2024 MAMMO, diagnostic, bilateral completed [facility] [address], [place], [address], 08/02/2024 15:58:40 08/11/2024 XR, chest completed [address], [address], 08/11/2024 22:53:15 08/18/2024 biopsy, breast, w/ ultrasound guidance (PROC) completed [address], [address], 08/18/2024 16:32:06 08/18/2024 biopsy, breast, w/ ultrasound guidance (PROC) completed [address], [address], 08/18/2024 15:24:16 Procedure Notes None recorded. Medical Equipment None Reported. Allergies Allergen ID Allergen Name Allergen Category Reaction Reaction Severity Criticality Documentation Date Start Date Code Code System Note Provider Name and Address Organization Details Recorded Time [id number] 2824e Substance with sulfonami de structure and antibacte rial mechanism of action (substanc e) medicatio n Not available Not available Not available 10/06/2023 59007 8003 SNOMED Not Available Not Available Not Available [id number] [id number] 2824e Demerol medicatio n Not available Not available Not available 01/06/2024 91591 1 RxNorm Not Available Not Available Not Available Medications Name Sig Start Date Stop Date Status Note LastModified by Organization Details LastModified Time amlodipine 10 mg tablet TAKE 1 TABLET BY MOUTH DAILY 2023 active Not Available Not Available Not Avai lable gabapentin 100 mg capsule TAKE 1 CAPSULE BY MOUTH TWICE DAILY 10/05 completed Not Available Not Available Not Available Symbicort 160 mcg-4.5 mcg/actuatio n HFA aerosol inhaler INHALE 2 PUFFS BY MOUTH TWICE DAILY 10/05 completed Not Available Not Available Not Available Symbicort 80 mcg-4.5 mcg/actuatio n HFA aerosol inhaler INHALE 2 PUFFS BY MOUTH TWICE DAILY 10/05 completed Not Available Not Available Not Available Breztri Aerosphere 160 mcg-9mcg-4.8 mcg/actuatio n HFA aerosol inhaler INHALE 2 PUFFS BY MOUTH TWICE DAILY active Not Available Not Available No t Available Vitals Date Recorded Body height Provider Name an d Address Organization Details Last Updated DateTime 01/06/2024 152.4 cm LYNN Jones - [facility] 11:24:44 Date Recorded Body mass index (BMI) Body weight Provider Name and Address Organization Details Last Updated DateTime 01/06/2024 23.6 kg/m2 27603.32 g LYNN Jones - [facility] 0 01/06/2024 11:24:53 Date Recorded Oxygen saturation Oxygen saturation in Arterial blood by Pulse oximetry Provider Name and Address Organization Details Last Updated DateTime 01/06/2024 97 % 97 % LYNN Jones - [facility] 01/06/2024 11:30:18 Date Recorded Heart rate Provider Name an d Address Organization Details Last Updated DateTime 01/06/2024 71 /min LYNN Jones - [facility] 11:30:36 Date Recorded Body height Provider Name an d Address Organization Details Last Updated DateTime 02/10/2024 152.4 cm LYNN Jones [facility] 11:52:03 Date Recorded Body mass index (BMI) Body weight Provider Name and Address Organization Details Last Updated DateTime 02/10/2024 23.1 kg/m2 53543.34 g LYNN Jones [facility] 0 02/10/2024 11:53:56 Date Recorded Heart rate Provider Name an d Address Organization Details Last Updated DateTime 02/10/2024 76 /min LYNN Jones [facility] 11:57:31 Date Recorded Oxygen saturation Oxygen saturation in Arterial blood by Pulse oximetry Provider Name and Address Organization Details Last Updated DateTime 02/10/2024 97 % 97 % LYNN Jones [facility] 02/10/2024 11:57:40 Date Recorded Pain severity - 0-10 verbal numeric rating [Score] - Reported Provider Name and Address Organization Details Last Updated DateTime 02/10/2024 9 Beth Whitaker JOANN - [facility] 02/10/2024 11:59:30 Date Recorded Body height Provider Name an d Address Organization Details Last Updated DateTime 03/09/2024 152.4 cm LYNN Jones [facility] 11:30:14 Date Recorded Body mass index (BMI) Body weight Provider Name and Address Organization Details Last Updated DateTime 03/09/2024 22.9 kg/m2 80567.74 g LYNN Jones [facility] 0 03/09/2024 11:36:06 Date Recorded Heart rate Provider Name an d Address Organization Details Last Updated DateTime 03/09/2024 68 /min LYNN Jones - [facility] 11:39:37 Date Recorded Oxygen saturation Oxygen saturation in Arterial blood by Pulse oximetry Provider Name and Address Organization Details Last Updated DateTime 03/09/2024 97 % 97 % LYNN Jones - [facility] 03/09/2024 11:39:39 Date Recorded Body height Provider Name an d Address Organization Details Last Updated DateTime 06/09/2024 152.4 cm Alissa SocratesLYNN bermudez [facility] 12:34:43 Date Recorded Body mass index (BMI) Body weight Provider Name and Address Organization Details Last Updated DateTime 06/09/2024 22.4 kg/m2 87522.4 g Alissa Crowell MA [facility] 12:39:38 Date Recorded Heart rate Provider Name an d Address Organization Details Last Updated DateTime 06/09/2024 78 /min Alissa Crowell LYNN [facility] 12:44:33 Date Recorded Oxygen saturation Oxygen saturation in Arterial blood by Pulse oximetry Provider Name and Address Organization Details Last Updated DateTime 06/09/2024 97 % 97 % Alissa Socrates LYNN [facility] 06/09/2024 12:44:41 Date Recorded Body height Provider Name an d Address Organization Details Last Updated DateTime 08/13/2024 152.4 cm Alissa Socrates LYNN [facility] 14:35:42 Date Recorded Heart rate Provider Name an d Address Organization Details Last Updated DateTime 08/13/2024 75 /min Alissa Socrates LYNN [facility] 14:56:45 Date Recorded Oxygen saturation Oxygen saturation in Arterial blood by Pulse oximetry Provider Name and Address Organization Details Last Updated DateTime 08/13/2024 90 % 90 % Alissa Socrates LYNN [facility] 08/13/2024 14:56:47 Date Recorded Body mass index (BMI) Body weight Provider Name and Address Organization Details Last Updated DateTime 08/13/2024 22 kg/m2 04021.22 g Alissa Socrates LYNN [facility] 14:58:23 Date Recorded Systolic blood pressure Diastolic blood pressure Provider Name and Address Organization Details Last Updated DateTime 01/06/2024 124 mm[Hg] 68 mm[Hg] Alissa Crowell LYNN [facility] 01/06/2024 11:30:32 Date Recorded Systolic blood pressure Diastolic blood pressure Provider Name and Address Organization Details Last Updated DateTime 02/10/2024 132 mm[Hg] 70 mm[Hg] Alissa Crowell LYNN [facility] 02/10/2024 11:57:21 Date Recorded Systolic blood pressure Diastolic blood pressure Provider Name and Address Organization Details Last Updated DateTime 03/09/2024 124 mm[Hg] 68 mm[Hg] Alissa Crowell MA [facility] 03/09/2024 11:39:03 Date Recorded Systolic blood pressure Diastolic blood pressure Provider Name and Address Organization Details Last Updated DateTime 06/09/2024 124 mm[Hg] 68 mm[Hg] Alissa Crowell MA [facility] 06/09/2024 12:45:49 Date Recorded Systolic blood pressure Diastolic blood pressure Provider Name and Address Organization Details Last Updated DateTime 08/13/2024 124 mm[Hg] 62 mm[Hg] Alissa Crowell MA [facility] 08/13/2024 14:56:12 Social History Question Answer Notes LastModified by Organizat ion Details LastModified Time Tobacco Smoking Status Current Every Day Smoker Ivan Castanon MA Merged with [facility] 10/06/2023 12:03:26 Do You Have An Advance Directive? No Patient Declined Information . Information not available 02/10/2024 What Is Your Level Of Alcohol Consumption? Moderate 10 Beers Per Day - Over 7-8 Hours Information not available 02/10/2024 Are You Blind Or Do You Have Difficulty Seeing? No Information not available 10/06/2023 What Is Your Level Of Caffeine Consumption? Moderate Coffee Information not available 02/10/2024 In The 14 Days Before Symptom Onset, Have You Had Close Contact With A Laboratory-confir med COVID-19 While That Case Was Ill? No Information not available 01/06/2024 In The 14 Days Before Symptom Onset, Have You Had Close Contact With A Person Who Is Under Investigation For COVID-19 While That Person Was Ill? No Information not available 01/06/2024 Have You Been To An Area Known To Be High Risk For COVID-19? No Information not available 01/06/2024 Are You Currently Employed? No Information not available 01/06/2024 Are You Deaf Or Do You Have Serious Difficulty Hearing? No Information not available 10/06/2023 What Type Of Diet Are You Following? REGULAR Information not available 10/06/2023 What Is The Highest Grade Or Level Of School You Have Completed Or The Highest Degree You Have Received? [id number] Information not available 02/10/2024 Are There Any Guns Present In Your Home? No Information not available 10/06/2023 In The Past 7 Days, How Many Days Did You Exercise? 0 Information not available 02/10/2024 In The Past 7 Days, How Much Pain Have You Colcord? Some Information not available 02/10/2024 In General, Would You Say You Health Is: Fair Information not available 02/10/2024 How Would You Describe The Condition Of Your Mouth And Teeth- Including False Teeth Or Dentures? Fair Information not available 02/10/2024 Each Night, How Many Hours Of Sleep Do You Get? 6 Information no t available 02/10/2024 Has Anyone Ever Told You That You Snore? Yes Information not available 02/10/2024 In The Past 7 Days, How Often Have You Colcord Sleepy In The Daytime? Rarely Information not available 02/10/2024 On They Days When You Drank Alcohol, How Often Did You Have 4 Or More Drinks At A Time? More Than 3 Times Per Week Information not available 02/10/2024 # Alcohol Drinks Per Week 70 Information not available 02/10/2024 What Was The Date Of Your Most Recent Tobacco Screening? 08/13/2024 Information not available 08/13/2024 What Is Your Current Pack Years? 20-29packyea rs Information not available 10/06/2023 What Is Your Relationship Status? Information not available 02/10/2024 Do You Use Your Seat Belt Or Car Seat Routinely? Yes Information not available 10/06/2023 Do You Have Smoke And Carbon Monoxide Detectors In Your Home? No Information not available 02/10/2024 How Much Tobacco Do You Smoke? 1 PPD Information not available 10/06/2023 Do You Feel Stressed (tense, Restless, Nervous, Or Anxious, Or Unable To Sleep At Night)? [id number] Pt States Because She's In Pain Information not available 10/06/2023 Do You Use Any Illicit Or Recreational Drugs? No Information not available 10/06/2023 Do You Use Sunscreen Routinely? No Information not available 10/06/2023 Has Tobacco Cessation Counseling Been Provided? Yes Information not available 06/09/2024 On What Date Was Tobacco Cessation Counseling Provided? 08/13/2024 Information not available 08/13/2024 How Many Years Have You Smoked Tobacco? 50 Information not available 10/06/2023 Do You Or Have You Ever Used Any Other Forms Of Tobacco Or Nicotine? No Information not available 10/06/2023 Sex: Female Functional Status Question Answer Note LastModified by Organization D etails LastModified Time Are you able to care for yourself? Yes Information n ot available 10/06/2023 What is your exercise level? None Information not available 10/06/2023 Mental Status None recorded. Family History Relationship Description Onset Age of this Age Resolved Age Notes LastModified by Organization Details LastModified Time Mother Diabetes mellitus mebyma Not available 2023 11:25:51 Father Cerebrovascu lar accident mebyma Not available 05/2024 11:26:06 Father Hypertensive disorder mebyma Not available 2023 11:26:11 Medical History Condition Response Coronary Artery Disease N Other N High Blood Pressure Y Atrial Fibrillation N Thyroid Problems N Kidney or Bladder Problems N Depression N COPD Y Blood Clots N GI Problems N Have you had a mammogram in the last yea r? N Skin Problems N Anemia N Heart Attack (PA) N Diabetes N Anxiety Disorder N Muscle, Joint, or Bone Problems N Seizures/Epilepsy N Have you had a colonoscopy in the last 1 0 years? Y Acid Reflux (GERD) N Cancer N Stroke Y Allergies N Asthma N Have you had a PSA blood test in the las t year? N High Cholesterol N Hepatitis N Liver Disease N Headaches N Osteoporosis N Heart Failure N Gynecological History Statement/Question Response If Post Menopausal, Age at Menopause Obstetrics History GPAL:G 0 P 0 0 0 0 Immunizations Vaccine Type Date Status Note Provider Nam e and Address Organization Details Recorded Time Influenza, adjuvanted, trivalent, PF 8 completed Beth Brethren null, [place] - [facility] 02/05/2024 10:41:14 Influenza, high-dose, quadrivalent, PF 2 completed Beth Brethren [place] [facility] 02/05/2024 10:41:14 Influenza, high-dose, quadrivalent, PF 3 completed Beth Brethren [place] [facility] 02/05/2024 10:41:14 Influenza, high-dose, quadrivalent, PF 9 completed Beth Brethren [place] [facility] 02/05/2024 10:41:14 Influenza, high-dose, quadrivalent, PF 0 completed Beth Brethren [place] [facility] 02/05/2024 10:41:14 Influenza, adjuvanted, quadrivalent, PF 0 completed Beth Brethren [place] [facility] 02/05/2024 10:41:14 Influenza, adjuvanted, quadrivalent, PF 1 completed Beth Brethren [place] [facility] 02/05/2024 10:41:14 COVID-19 vaccine, vector-nr, rS-Ad26, PF, 0.5 mL 1 completed Beth Brethren [place] [facility] 02/05/2024 10:41:14 Pneumococcal conjugate PCV 13 5 completed Beth Brethren [place] [facility] 02/05/2024 10:41:14 Influenza, high-dose, trivalent, PF 7 completed Beth Brethren [place] [facility] 02/05/2024 10:41:14 Influenza, high-dose, trivalent, PF 6 completed Beth Brethren [place] [facility] 02/05/2024 10:41:14 Influenza, high-dose, trivalent, PF 4 completed Beth Bre[place] [facility] 02/05/2024 10:41:14 Influenza, high-dose, trivalent, PF 5 completed Beth Brethren [place] [facility] 02/05/2024 10:41:14 Influenza, high-dose, trivalent, PF 9 completed Beth Sherman far[place], [place] - [facility] 02/05/2024 10:41:14 Influenza, high-dose, trivalent, PF 4 completed Linda Thomsa MD Attn: Accounting,[address] [facility], [place], [address], [facility] - [facility] 06/20/2024 16:18:19 Past Encounters Encounter ID Performer Location Encounter Start Date Encounter Closed Date Diagnosis/Indication Diagnosis SNOMED-CT Code Diagnosis ICD10 Code Diagnosis Note [id number] MD Js Tiwari (Adult Med) [address] [place] [phone] 10/06/2023 11:30:21 10/06/2023 12:40:41 Essential hypertension 59049908 I10 Chronic low back pain 27 6532090 M54.50 Chronic ob structive pulmonary disease 78843062 J44.9 Hyponatremia 79738588 E8 7.1 Nicotine dependence 5629 4008 F17.357 [id number] MD Js Tiwari (Adult Med) [address] [place] [id number] 0 01/06/2024 11:18:00 01/06/2024 12:21:04 Essential hypertension 69895080 I10 Chronic low back pain 27 5998621 M54.50 Hyponatremia 87128247 E8 7.1 Nicotine dependence 5629 4008 F17.200 Chronic ob structive pulmonary disease 78527892 J44.9 [id number] MD Js Tiwari (Adult Med) [address] [place] [id number] 02/10/2024 11:47:44 02/10/2024 12:24:17 Adult health examination 022188595 Z00.00 Health Risk Assessment collected and reviewed [id number] MD Js Tiwari (Adult Med) [address] [place] [phone] 03/09/2024 11:09:30 03/09/2024 12:51:07 Chronic obstructive pulmonary disease 74015103 J44.9 Essential hypertension 28122917 I10 Hyponatremia 91571877 E8 7.1 Nicotine dependence 5629 4008 F17.406 [id number] MD Js Tiwari (Adult Med) [address] [place] [address] 06/09/2024 12:30:40 06/09/2024 13:09:16 Smoker 62378453 F17.200 Body mass index 20-24 - normal 303813011 Z68.22 Administra tion of influenza vaccine 46885764 Z23 Essential hypertension 98521066 I10 Chronic ob structive pulmonary disease 79444531 J44.9 Cough 75556257 R05.9 Abdominal pain 63741948 R10.9 [id number] MD Js Tiwari (Adult Med) [address] [place] [address] 08/13/2024 14:06:51 08/13/2024 15:05:26 Smoker 70831808 F17.200 Recurrent falls 79260275 2 R29.6 Chronic ob structive pulmonary disease 49252995 J44.9 Essential hypertension 31551842 I10 Health Concerns Section Related Observation LastModified by Organization Detai ls LastModified Time None Recorded Concern Status LastModified by Organization Details LastModified Time None Recorded Advance Directives Directive N: Patient declined informat ion. Payers Encounter Date Sequence Insurance Name Policy Number Policy Smith Covered Member ID Smith Member ID Guarantor Name 01/06/[address] [facility] (MEDICARE REPLACEMENT/A DVANTAGE - HMO) [id number] Ai Vargas [id number] Ai Vargas 02/10/[address] [facility] (MEDICARE REPLACEMENT/A DVANTAGE - HMO) [id number] Ai Vargas [id number] Ai Vargas 03/09/[address] [facility] (MEDICARE REPLACEMENT/A DVANTAGE - HMO) [id number] Ai Vargas [id number] Ai Vargas 06/09/[address] [facility] (MEDICARE REPLACEMENT/A DVANTAGE - HMO) [id number] Ai Vargas [id number] Ai Vargas 08/13/[address] [facility] (MEDICARE REPLACEMENT/A DVANTAGE - HMO) [id number] Ai Vragas [id number] Ai Vargas Notes Date Note Type Note Provider Name and Address Organization Details Recorded Time 01/06/2024 text/html Hypertension no headache or dizziness. Chronic low back pain persistent she has had MRIs before does not want to see pain manage COPD continues to smoke denies wheezing does have some chronic cough hyponatremia no nausea no vomiting no seizures intermittent fatigue. Nicotine dependence discussed here and interval history are after surgery for heart valve Linda Thomas MD Attn: Accounting,[address] [place], [address], [facility] 02/01/2024 13:17:17 02/10/2024 text/html MAW 2Reported bypatient.Diet and Nutrition:healthy diet Fracture Risk:no sudden unexplained fractures;history of fractures(left knee cap) Concentration and Memory:no decreased concentrating ability; no memory lapses or loss; does not forget words Speech/Motor difficulties:no speech difficulties; no difficulty expressing formulated concepts; no difficulty with fine manipulative tasks; no difficulty writing/copying; no slowed reaction time; does not knock things over when trying to pick them up Hearing:loss of hearing in one ear only(right ear - patient thinks she has wax build up) Vision:worse both distance and near(glasses) Activities of Daily Living:able to bathe with limited or no assistance; able to contol urination and bowels; able to dress with limited or no assistance; able to feed self with limited or no assistance; able to get out of chair or bed with limited or no assistance; able to groom with limited or no assistance; able to toilet with limited or no assistance Instrumental Activities of Daily Living:able to do house work with limited or no assistance; able to grocery shop with limited or no assistance; able to manage medications with limited or no assistance; able to manage money with limited or no assistance; able to prepare meals with limited or no assistance; able to use the phone with limited or no assistance Falls Risk Assessment:no frequent falls while walking; no fall in the past year; no fall since last visit; no dizziness/vertigo Home Safety:no unsafe han hazzards; no unsafe stairs; working smoke/CO detectors; practicing 'safer sex'; no fire arms; good lighting in the home;does not have hand bars in the bathroom/shower(ask ed son to help get one) Linda Thomas MD Attn: Accounting[address] [place], [address], [facility] 02/15/2024 13:27:13 03/09/2024 text/html Hypertension no headache or dizziness. COPD continues to smoke denies wheezing does have some chronic cough hyponatremia no nausea no vomiting no seizures intermittent fatigue. Nicotine dependence discussed here and interval history are after surgery for heart valve. She is doing okay from that. She is still drinking 6 beers a day Linda Thomas MD Attn: Accounting,[address] [facility], [place], [address], [facility] 03/09/2024 21:53:29 06/09/2024 text/html hypertension no headache or dizziness. COPD some intermittent shortness of breath and cough from time to time. History of hyponatremia she has not had any nausea or vomiting there has not been any headache. Occasionally will have some vague abdominal discomfort. Linda Thomas MD Attn: Accounting,[address] [facility], [place], [address], [facility] 06/20/2024 16:35:33 08/13/2024 text/html ER follow up she had a fall mechanical scraped up a little bit on her arms workup in the emergency room was negative. She has breast biopsy that is coming up. She was in here with her daughter today Linda Thomas MD Attn: Accounting,[address] [facility], [place], [address], [facility] 08/14/2024 12:57:23 OBGyn Episode No OBEpisode recorded.
--- OUTSIDE RECORDS SUMMARY | 2024-08-19 21:47 | XMS_ITS | Continuity of Care Document ---
Author Organization [facility] Address [address] [place] [address] [address] [place] [address] Phone Care Team Providers Care Subassembly Assembler Name Role Phone Hope OD, Jovan Unavailable Unavailable Advance Directives Directive Yes / No Effective Date File Name No Information Encounters Encounter Description Practice Location Reason(s) For Visit Diagnoses Date Provider Providers Copied on Encounter [facility], [id number] [place] [address] [address], [place], [place], [id number], [place] tel:[phone] [facility] [place] No Information Apr-0 7-200 1 Hope OD Jovan. [address] [facility] , [address], [place], [address], [place]. tel:[phone] Family History Family Member Type Diagnosis Age At Onset No Information Payers Payer name Insurance type Covered constitution party ID Authoriza tion(s) No Information Social History Type Description Quantity Date Captured Comments Sex Female Smoking Status No Information Chief Complaint And Reason For Visit No Information Reason For Referral Reason For Referral No Information History Of Present Illness Encounter Date Complaint History Of Prese nt Illness No Information Functional Status Date Functional Assessmen t No Information Instructions Date Instruction Additional Infor mation No Information Assessments Type Assessment Date No Information Patient Care Teams Name Effective Dates (start - stop) Status Members No Information
--- OUTSIDE RECORDS SUMMARY | 2024-08-19 21:47 | XMS_ITS | Clinical Summary ---
Author Organization [facility] Address [address] [place] [address] Phone Care Team Providers Care Electronics Manufacturer Name Role Phone Amos Thomas MD Primary Care Provider [phone] Allergies Active Allergy Reactions Criticality Noted Date Comments Meperidine nausea 04/05/2021 Meperidine Hcl nausea 09/03/2021 Sulfa Antibiotics 04/05/2021 Medications Medication Sig Dispensed Refills Start Date End Date Status amLODIPine (NORVASC) 10 MG tablet Take 10 mg by mouth 1 (one) time each day Active Multiple Vitamins-Minerals (CENTRUM SILVER PO) Take by mouth Ac tive Melatonin 10 MG capsule Take by mouth Active budesonide-formotero l (SYMBICORT) 80-4.5 MCG/ACT inhaler Inhale 2 puffs 2 (two) times a day Rinse mouth with water after use to reduce aftertaste and incidence of candidiasis. Do not swallow. Active cholecalciferol (VITAMIN D-3) 10 MCG (400 UNIT) tablet Take 400 Units by mouth 1 (one) time each day Active Active Problems Problem Noted Date Diagnosed Date Alcohol abuse 05/08/2021 Hyponatremia Resolved Problems Problem Noted Date Diagnosed Date Resolved Date Vitamin D deficiency 023 Essential hypertension 10/30 Family History Medical History Relation Comments Diabetes Brother Hypertension Father Stroke Father Diabetes Mother Hypertension Sister Relation Status Comments Brother Father Mother Sister Social History Tobacco Use Types Packs/Day Years Used Date Smoking Tobacco: Every Day Smokeless Tobacco: Never Tobacco Cessation:Ready to Q uit: Not Asked; Counseling Given: Not Answered Alcohol Use Standard Drinks/Week Comments Yes 0 (1 standard drink = 0.6 oz pur e alcohol) Alcohol Abuse Sex and Gender Information Value Date Recorded Sex Assigned at Not on file Gender Identity Not on file Sexual Orientation Not on file Last Filed Vital Signs Vital Sign Reading Time Taken Comments Blood Pressure 167/81 05/08/2021 12:43 PM CDT Pulse 78 05/08/2021 12:43 PM CDT Temperature - - Respiratory Rate - - Oxygen Saturation - - Inhaled Oxygen Concentration - - Weight 60.8 kg (134 lb) 05/08/2021 12:43 PM CDT Height 152.4 cm (5') 12/03/2022 8:34 AM CDT Body Mass Index 26.17 05/08/2021 12:43 PM CDT Plan of Treatment Health Maintenance Due Date Last Done Comments Pneumococcal PPSV23/PCV13 65 + Years / High and Highest Risk (1 of 4 - PCV) 1951 Influenza Vaccine (#1) 2024 Care Teams Electronics Manufacturer Relationship Specialty Start Date End Date Amos Thomas MD [address] [facility] [address] [place] [address] PCP - General 01/16/21
--- OUTSIDE RECORDS SUMMARY | 2024-08-19 21:47 | XMS_ITS | Patient Health Summary ---
Author Organization [facility] Address [address] [place] [address] Care Team Providers Care Tailing Machine Operator Name Role Phone Amos Thomas MD Primary Care Provider [phone] Note from [facility],non-owned Affiliates and Associated Physician Practices is amultiple site organization consisting of ambulatory clinics and hospital sitesin [place], [place], [place] and [place]. This disclosure is being madepursuant to the Care Everywhere program and may not contain all information available regarding this patient. Last updated 18.[facility] Allergies * Meperidine(Nausea and/or Vomiting) -Low Criticality * Sulfa Drugs(Other) -Low Criticality Medications * Be aware that medications may not be up to date on this document. Alwaysverify current medications with the patient. * hydroCHLOROthiazide (HYDRODIURIL) 25 MG tablet(Started 05/31/2016) Take 25 mg by mouth DAILY. * budesonide-formoterol (SYMBICORT) 80-4.5 MCG/ACT inhaler(Started 05/31/2016) Inhale by mouth. * Cholecalciferol (VITAMIN D3) 400 UNITS(Started 05/31/2016) Take by mouth DAILY. * amLODIPine (NORVASC) 10 MG tablet(Started 05/31/2016) Take 10 mg by mouth DAILY. * Multiple Vitamins-Minerals (CENTRUM SILVER) TABS Take 1 tablet by mouth once daily * Budesonide-Formoterol Fumarate (SYMBICORT IN) Inhale by mouth as needed Active Problems Problem Noted Date Diagnosed Date Neoplasm of uncertain behavior of skin 7 Xerosis cutis 12/13/2016 Actinic keratosis 12/13/2016 Other seborrheic keratosis 07/01/2016 Other melanin hyperpigmentation 07/01/2016 Melanocytic nevi of trunk 07/01/2016 Social History Tobacco Use Types Packs/Day Years Used Date Smoking Tobacco: Every Day Cigarettes Alcohol Use Standard Drinks/Week Comments Yes 10 (1 standard drink = 0.6 oz pu re alcohol) Sex and Gender Information Value Date Recorded Sex Assigned at Not on file Gender Identity Not on file Sexual Orientation Not on file Procedures * DERMATOPATHOLOGY(Performed 12/13/2016) Results * PATHOLOGY TISSUE FOR DERMATOLOGY (12/13/2016 12:00 AM CDT) Result CASE: [id number] PATIENT: AI VARGAS PATHOLOGIC DIAGNOSIS: A. Left post auricular: SEBORRHEIC KERATOSIS B. Left flank: SEBORRHEIC KERATOSIS CLINICAL DATA: A: SK vs VV. B: ISK. GROSS DESCRIPTION: A: Received is one formalin filled container labeled with the patients name and designated left post auricular. The specimen consists of a shave biopsy measuring [id number]. The specimen is bisected sectioned and submitted in 1 cassette. Jar 0. B: Received is one formalin filled container labeled with the patients name and designated left flank. The specimen consists of a shave biopsy measuring [id number]. The specimen is serially sectioned and submitted in 1 cassette. Jar 0. MICROSCOPIC DESCRIPTION: SPECIMEN ??A Sections show an acanthotic lesion composed of relatively uniform keratinocytes. There is hyperkeratosis and pseudo horn cysts formation. SPECIMEN ??B Sections show an acanthotic lesion composed of relatively uniform keratinocytes. There is hyperkeratosis and pseudo horn cysts formation. Electronically signed out by Jeanine Marie M.D. 12/17/2016 1:52:20PM [facility] Comment: Performed at: Dermatopathology Laboratory [facility] - Department of Dermatology [address] [place] [address] 5th [place] [address] Phone number: [phone] FAX: [phone] Skin (tissue) specimen (specimen) 12/13/2016 12/16/[address] [facility] - 12/17/2016 1:52 PM CDT Specimen A: Type->Shave ?Site->L post auricular ?History->pedunculated verrucous plaque ?Impression->SK vs VV ?Check Margins:->N/A ?Prior Biopsy->N/A Specimen B: Type->Shave ?Site->L flank ?History->2cm stuckon plaque ?Impression->ISK ?Check Margins:->N/A ?Prior Biopsy->N/A Aquiles Stevenson MD LAB - PATHOLOGY/CYTO LOGY ORDERABLES Performing Organization Address City/State/[facility] Co de Phone Number [facility] [address] [place] [address], [facility] [phone] Care Teams Tailing Machine Operator Relationship Specialty Start Date End Date Amos Thomas MD PCP - General 03/19/16
--- OUTSIDE RECORDS SUMMARY | 2024-08-19 21:47 | XMS_ITS | Referral Summary ---
Author Organization [facility] Address [address] [place] [address] Care Team Providers Care Cup Trimming Machine Operator Name Role Phone Amos Thomas MD Primary Care Provider [phone] [facility],non-owned Affiliates and Associated Physician Practices is amultiple site organization consisting of ambulatory clinics and hospital sitesin [place], [place], [place] and [place]. This disclosure is being madepursuant to the Care Everywhere program and may not contain all information available regarding this patient. Last updated 18.[facility] Allergies Active Allergy Reactions Criticality Noted Date [...] Orientation Not on file Plan of Treatment Not on file Care Teams Cup Trimming Machine Operator Relationship Specialty Start Date End Date Amos Thomas MD PCP - General 03/19/16
== END 2024-08-18 08:18 | disposition home or self-care (01) ==
PROVIDERS: PCP Internal Medicine; Visit Provider Internal Medicine
DX: N63.25 Unspecified lump in the left breast, overlapping quadrants (principal)
CPT/HCPCS: 19083; 19084; 77065; 88305; 88360; A4648

== ENCOUNTER 2025-02-03 14:11 | Outpatient (CLI) | payer MEDICARE, SELFPAY ==
--- NOTE | ~2025-02-03 | PE_ITS ---
EXAMINATION: PET skull to mid thigh DATE: 02/03/2025 15:51 INDICATION: Malignant neoplasm of the left breast TECHNIQUE: Blood glucose level was 90 mg/dL. 10.951 mCi of 18-fluorodeoxyglucose (18-FDG) was adminis tered i.v. Low dose computed tomography (CT) images were acquired from the base of the brain to the p roximal thighs for attenuation correction and anatomic localization. Positron emission tomography (PE T) images were acquired in the same distribution beginning 51 minutes after injection. Images includi ng fused PET/CT images were reconstructed in axial, coronal, and sagittal planes. Automated exposure control technique was employed. The dose-length product was 433.97mGy-cm. COMPARISON: None FINDINGS: Head/neck: There is symmetric increased activity in the oral cavity, palatine tonsils, parotid glands, submandi bular glands, laryngeal muscles and ocular muscles without CT correlate, likely physiologic. Large mu cous retention cyst in the left maxillary sinus. No pathologically enlarged cervical lymphadenopathy or suspicious foci of increased FDG uptake in the visualized head or neck. Chest: Mild emphysema. Interval increase in size of a previously 11 x 9, currently 1.4 x 1.2 cm FDG avid nod ule in the superior segment of the left lower lobe with maximal SUV of 4.9. Slightly smaller 9 x 7 mm left upper lobe with maximal SUV of 1.6. Minimal FDG activity along a linear band of discoid atelect asis in the right lower lobe with maximal SUV of 2.2. Calcified left lower lobe nodule consistent wit h old granulomatous disease. Heart size is normal. Atherosclerotic coronary artery calcifications. No pericardial effusion. Thoracic aorta is normal in caliber. No pathologically enlarged or FDG avid th oracic lymphadenopathy. Postoperative change of prior left mastectomy with relatively uniform mild in creased FDG uptake with maximal SUV of 2.7 along the margins of extensive but relatively thin seroma without discrete soft tissue nodule. Abdomen/pelvis/proximal thighs: Physiologic renal accumulation and excretion of FDG activity in the kidneys, bladder and along portio ns of ureters. Normal degree and heterogenous pattern of increased uptake throughout the liver withou t radiologic correlate or dominant FDG avid lesion. The gallbladder, pancreas, spleen and bilateral a drenal glands are normal. Mild uptake scattered throughout the bowels without radiologic correlate, a lso likely physiologic. The uterus is not identified and has likely been surgically resected. No o ther abnormal foci of increased FDG uptake or pathologically enlarged lymphadenopathy in the abdomen, pelvis or proximal thighs. Musculoskeletal: Thoracolumbar levocurvature with moderate to severe lumbar spondylosis. Moderate cervical and thoraci c spondylosis. No suspicious lytic, blastic or abnormally FDG avid bone lesions. IMPRESSION: 1. Relatively mild uniform uptake throughout the thin-walled rim of a small likely postoperative left chest wall seroma post prior left mastectomy without foci of more prominent increased uptake or soft tissue nodularity to suggest residual/locally recurrent disease. 2. Mild increased uptake associated with an enlarging 1.4 x 1.2 cm spiculated nodule at the superior segment of the left lower lobe which raises concern for malignancy, more suspicious for primary than metastatic. Consider CT-guided percutaneous biopsy. 2. No other suspicious FDG avid lesions, pathologically enlarged lymphadenopathy in the neck, chest, abdomen or pelvis to suggest metastatic disease. Reviewed, dictated and finalized at location A. IMPRESSION: 1. Relatively mild uniform uptake throughout the thin-walled rim of a small lik rebecca postoperative left chest wall seroma post prior left mastectomy without foc i of more prominent increased uptake or soft tissue nodularity to suggest resid ual/locally recurrent disease. 2. Mild increased uptake associated with an enlarging 1.4 x 1.2 cm spiculated n odule at the superior segment of the left lower lobe which raises concern for m alignancy, more suspicious for primary than metastatic. Consider CT-guided perc utaneous biopsy. 2. No other suspicious FDG avid lesions, pathologically enlarged lymphadenopath y in the neck, chest, abdomen or pelvis to suggest metastatic disease.
--- OUTSIDE RECORDS SUMMARY | 2025-02-03 14:15 | XMS_ITS | Clinical Summary ---
Author Organization [facility] [employer] Address [address] [place] [address] Care Team Providers Care Stockfeed Miller Name Role Phone Amos Thomas MD Primary Care Provider [phone] Source Comments [facility],non-owned Affiliates and Associated Physician Practices is amultiple site organization consisting of ambulatory clinics and hospital sitesin [place], [place], [place] and [place]. This disclosure is being madepursuant to the Care Everywhere program and may not contain all information available regarding this patient. Last updated 18.[facility] Allergies Active Allergy Reactions Criticality Noted Date Comments Meperidine Nausea and/or Vomiting Low 05/31/2016 Sulfa Drugs Other Low 05/31/2016 Yeast infection as a child Medications * Be aware that medications may not be up to date on this document. Alwaysverify current medications with the patient. hydroCHLOROthiaz erica (HYDRODIURIL) 25 MG tablet Take 25 mg by mouth DAILY. 05/31/2016 Active budesonide-formo terol (SYMBICORT) 80-4.5 MCG/ACT inhaler Inhale by mouth. 05/31/2016 Active Cholecalciferol (VITAMIN D3) 400 UNITS Take by mouth DAILY. 05/31/2016 Active amLODIPine (NORVASC) 10 MG tablet Take 10 mg by mouth DAILY. 05/31/2016 Active Multiple Vitamins-Mineral s (CENTRUM SILVER) TABS Take 1 tablet by mouth once daily Active Budesonide-Formo terol Fumarate (SYMBICORT IN) Inhale by mouth as [...] drink = 0.6 oz pu re alcohol) Comments Unknown Sex and Gender Information Value Date Recorded Sex Assigned at Not on file Legal Sex Female 5:37 PM [employer] ED[employer] Gender Identity Not on file Sexual Orientation [...] COVID-19 VACCINE (2 - season) 2024 09/29/2020 DEPRESSION SCREENING 07/28/2024 MEDICARE AWV CALENDAR YEAR 2024 INFLUENZA VACCINE (Season Ended) 2025 05/12/2020, 05/25/2019, 05/18/2018, Additional history exists HEPATITIS B VACCINE Aged Out No longe r eligible based on patient's age to complete this topic HIB VACCINE Aged Out No longer eligi ble based on patient's age to complete this topic HPV VACCINE Aged Out No longer eligi ble based on patient's age to complete this topic MENINGOCOCCAL (Group B) VACCINE SHARED DECISION-MAKING Aged Out No longer eligible based on patient's age to complete this topic MENINGOCOCCAL GROUPS A/C/Y/W VACCINE Aged Out No longer eligible based on patient's age to complete this topic Insurance Care Teams Stockfeed Miller Relationship Specialty Start Date End Date Amos Thomas MD PCP - General 03/19/16
--- OUTSIDE RECORDS SUMMARY | 2025-02-03 14:15 | XMS_ITS | Continuity of Care Document ---
Author Organization [facility] Address [id number] [place] [address] [address] [place] [address] Phone Care Team Providers Care Software Qa Manager Name Role Phone Hope OD, Jovan Unavailable Unavailable Advance Directives Directive Yes / No Effective Date File Name No Information Encounters Encounter Description Practice Location Reason(s) For Visit Diagnoses Date Provider Providers Copied on Encounter [facility], [id number] [place] [address] [address], [place], [place], [id number], [place] tel:[phone] [address] [facility] [place] No Information Apr-0 7-200 1 Hope OD Jovan. [address] [place] , [address], [place], [address], [place]. tel:[phone] Family History Family Member Type Diagnosis Age At Onset No Information Payers Payer name Insurance type Covered alliance party ID Authoriza tion(s) No Information Social [...]
--- OUTSIDE RECORDS SUMMARY | 2025-02-03 14:16 | XMS_ITS | Referral Summary ---
Author Organization [address] Address [address] [place] [id number] Care Team Providers Care Tankroom Worker Name Role Phone Amos Thomas MD Primary Care Provider [phone] Sarah Singh MD Unavailable [phone] Encounters Date Type Department Care Team Description 01/19/2025 Telephone [facility] [address] [place] [phone] Kehinde Weaver 11/26/2024 Telephone [facility] [address] [place] [phone] Kehinde Weaver 11/26/2024 Orders Only [facility] [address] [place] [phone] Madison Paula MD PhD Malignant neoplasm of lower-outer quadrant of left breast of female, estrogen receptor positive (HCC) (Primary Dx) 11/24/2024 1:00 PM CDT Office Visit [facility] [address] [place] [phone] Madison Paula MD PhD Malignant neoplasm of lower-outer quadrant of left breast of female, estrogen receptor positive (HCC) (Primary Dx) 11/11/2024 1:56 PM CDT - 11/12/2024 10:19 AM CDT Hospital Encounter [facility] [address] [place] [phone] Aft, Madison Lozano MD PhD Malignant neoplasm of lower-outer quadrant of left breast of female, estrogen receptor positive (HCC) Discharge Disposition: Discharge to home or self care 11/11/2024 6:45 AM CDT - 11/11/2024 11:59 PM CDT Hospital Encounter [facility] ([facility]) [address] [place] [phone] Encounter for other preprocedural examination Discharge Disposition: Discharge to home or self care 11/11/2024 3:25 PM CDT - 11/11/2024 5:20 PM CDT Surgery [facility] Operating Room [facility] ([facility]) [address] [place] [phone] Aft, Madison Lozano MD PhD MASTECTOMY SIMPLE 11/11/2024 4:02 PM CDT Anesthesia Event [facility] Operating Room [facility] ([facility]) [address] [place] [phone] Norma Watt MD Brake, Barbara E., NP 11/10/2024 Telephone [facility] [address] [place] [phone] Chai, Madison Lozano MD PhD Surgery Confirmation 11/09/2024 Telephone [facility] [address] [place] [phone] Marthat, Madison Lozano MD PhD Surgery Confirmation 11/05/2024 Orders Only [facility] [address] [place] [phone] Robina Luis RN from Last 3 Months Allergies Active Allergy Reactions Criticality Noted Date Comments Meperidine Nausea And Vomiting,Vomiting Low 05/31/2016 Sulfa (Sulfonamide Antibiotics) Itching,Other (See comments) Low 09/21/2024 As a child Medications multivitamin,tx-ir dh-Ue-EL-min 27-0.4 mg tablet Take by mouth Active cholecalciferol 400 unit capsule Take 1 tablet/capsule (400 Units total) by mouth daily Active melatonin 10 mg capsule Take by mouth Active amLODIPine (NORVASC) 10 mg tablet Take 1 tablet (10 mg total) by mouth every morning 05/31/20 16 Active fluticasone propion-salmeteroL (ADVAIR DISKUS) 250-50 mcg/dose diskus inhaler Inhale 2 puffs 2 (two) times a day 10/16/19 25 Active vit A/vit C/vit E/zinc/copper (PRESERVISION AREDS ORAL) Take 1 tablet by mouth every morning Active acetaminophen (TYLENOL) 500 mg tablet Take 2 tablets (1,000 mg total) by mouth every 6 (six) hours as needed for pain Active cyclobenzaprine (FLEXERIL) 10 mg tabletIndications: Muscle Spasm Take 1 tablet (10 mg total) by mouth every 8 (eight) hours as needed for muscle spasms 15 tablet 11/13/19 25 Active Additional Information Patient not taking.Reported on 11/24/2024 ondansetron ODT (ZOFRAN-ODT) 4 mg disintegrating tabletIndications: nausea and vomiting Take 1 tablet (4 mg total) by mouth every 6 (six) hours as needed for nausea or vomiting 20 tablet 11/13/19 25 Active Additional Information Patient not taking.Reported on 11/24/2024 oxyCODONE (ROXICODONE) 5 mg immediate release tabletIndications: Pain Take 1 tablet (5 mg total) by mouth every 4 (four) hours as needed for pain 12 tablet 11/13/19 25 Active senna-docusate (PERICOLACE) 8.6-50 mg Take 1 tablet by mouth daily 10 tablet 11/13/19 25 Active Additional Information Patient not taking.Reported on 11/24/2024 Active Problems Problem Noted Date Diagnosed Date Breast cancer in female 11/11/2024 Malignant neoplasm of lower- outer quadrant of left breast of female, estrogen receptor positive 09/17/2024 Hypertension 04/18/2011 Immunizations Immunization Administration Dates Next Due Influenza, Quad, Adjuvantate d, Intramuscular 06/26/2021,05/12/2020 Influenza, Quadrivalent, Hig h Dose, Preservative Free, Intrr 05/05/2023,04/30/2022,05/28/2020,05/25 Influenza, Trivalent, Adjuva nted, Intramuscular 05/17/2018 Influenza, Trivalent, High D ose, Split, Preservative Free, Intramuscular 06/09/2024,05/21/2019,05/05/2017,05/13,05/21/2015,05/20/2014 Pneumococcal Conjugate PCV 13 05/21/2015 Social History Tobacco Use Types Packs/Day Years Used Date Smoking Tobacco: Every Day Cigarettes 1 58.5 Started: 1964 Smokeless Tobacco: Never Tobacco Cessation:Ready to Q uit: Not Asked; Counseling Given: Not Answered Alcohol Use Standard Drinks/Week Comments Yes 0 (1 standard drink = 0.6 oz pur e alcohol) AUDIT-C Answer Date Recorded Q1: How often do you have a drink containing alcohol? 4 or more times a week 11/11/2024 Q2: How many drinks containi ng alcohol do you have on a typical day when you are drinking? 7 to 9 Q3: How often do you have si x or more drinks on one occasion? Daily or almost daily 11/11/2024 Personal Safety Answer Date Recorded Have you ever been in or are you currently in a harmful physical or emotional relationship or is someone making you feel afraid or unsafe? Denies 11/11/2024 Comments No Sex and Gender Information Value Date Recorded Sex Assigned at Not on file Legal Sex Female 10:22 PM [employer] Gender Identity Not on file Sexual Orientation Not on file Last Filed Vital Signs Vital Sign Reading Time Taken Comments Blood Pressure 143/62 11/12/2024 9:20 AM CDT Pulse 66 11/12/2024 9:20 AM CDT Temperature 36.6 C (97.9 F) 11/12/2024 9:20 AM CDT Respiratory Rate 16 11/12/2024 9:20 AM CDT Oxygen Saturation 95% 11/12/2024 9:20 AM CDT Inhaled Oxygen Concentration - - Weight 50.9 kg (112 lb 3.2 oz) 11/24/2024 1:03 P M CDT Height 152.4 cm (5') 11/24/2024 1:03 PM CDT Body Mass Index 21.91 11/24/2024 1:03 PM CDT Plan of Treatment Not on file Medical Devices Implanted Type Area Deckhand Clam Dredge Device Identifier Shelf Expiration Date Model / Serial / Lot CO Everywhere Inc Marker Tissue Needle Delivery Spiral Capped Seed Radiopaque Fdc Stainless Steel Low Nickel [employer]imag [id number] - [id number] Implanted:Qty: 1 on 09/30/2024 by Iwona Edwards MD at [facility] Left: Axilla [employer]ack [id number] 02/24/2026 [id number] / [id number] Procedures Procedure Name Priority Date/Time Associated Diagnosis Comments SURGICAL PATHOLOGY Routine 11/11/2024 5: 03 PM CDT Malignant neoplasm of lower-outer quadrant of left breast of female, estrogen receptor positive (HCC) BIOPSY SENTINEL LYMPH NODE 11/11/2024 4:43 PM CDT Malignant neoplasm of lower-outer quadrant of left breast of female, estrogen receptor positive (HCC) Case Notes 11/09 - Equipment Conflict, email sent to Resource nurse. NB Special Needs [employer] needed day of surgery MASTECTOMY SIMPLE 11/11/2024 4:4 3 PM CDT Malignant neoplasm of lower-outer quadrant of left breast of female, estrogen receptor positive (HCC) Case Notes 11/09 - Equipment Conflict, email sent to Resource nurse. NB Special Needs [employer] needed day of surgery WY AN PROCEDURE PLACEHOLDER Routine 11/11/2024 4:23 PM CDT WY AN ELECTIVE ENDOTRACHEAL AIRWAY Routine 11/11/2024 4:23 PM CDT W[place] AN PROCEDURE PLACEHOLDER Routine 11/11/2024 3:48 PM CDT W[place] AN PROCEDURE PLACEHOLDER Routine 11/11/2024 3:47 PM CDT RADIOLOGIC EXAMINATION OF SURGICAL SPECIMEN Schedule Routine, Read Routine (OP Routine) 11/11/2024 3:38 PM CDT Encounter for other preprocedural examination EGFR STAT 11/11/2024 2:07 PM CDT COMPREHENSIVE METABOLIC PANEL STAT 11/11/2024 2:07 PM CDT from Last 3 Months Results * Surgical pathology (11/11/2024 5:03 PM CDT) Tissue (Breast, simple mastectomy) 11/11/2024 5:03 PM CDT Comment:SPECIMEN A SENT WITH PCT NICHOLE RAYMO, SPECIMEN B DROPPED OFF AT SPEL BY RN Tissue specimen (specimen) (Lymph node, sentinel breast) 11/11/2024 5:09 PM CDT Comment:SPECIMEN A SENT WITH PCT NICHOLE RAYMO, SPECIMEN B DROPPED OFF AT SPEL BY RN Narrative PATHOLOGY [facility] - 11/17/2024 3:33 PM CDT EPIC results best viewed via link to PDF [facility] [place] [address] Note to Patients: This report may contain a detailed description of human tissue sent by a health care provider to the laboratory for pathologic evaluation. The content of this report is essential for diagnosis and may provide important critical findings. This information may be unfamiliar to patients to review without a medical professional present. It is advised that the patient review this report in the presence of a health care provider who can answer questions and explain the details. SURGICAL PATHOLOGY REPORT FINAL Patient Name: AI VARGAS Gender: F : 1945 (Age: 79) Address: [address] [place] [address] Hospital #: [id number] Taken:11/11/2024 Received:11/11/2024 Reported: 11/17/2024 Patient Type: [facility] OP In Bed Service: Surgery Location: [place] [address] Physician(s): Yonathan Ruvalcaba M.D. Michael C. Adams, M.D. Diagnosis: A. Breast, left, simple mastectomy - Invasive ductal carcinoma - Multifocal - Greatest gross dimension = 55 mm - Histologic grade = 3/3 (tub 3 + nuc 3 + reva 3 = 9/9) by ESBR criteria - Positive for lymphovascular space invasion - Surgical margins negative: nearest = >5 mm from all margins - Ductal carcinoma in situ (DCIS) - Greatest estimated extent = 50 mm - Nuclear grade = 3/3 - Solid pattern with comedonecrosis - Surgical margins negative: nearest = >5 mm from all margins - Biopsy site changes - Nipple with ulceration by invasive ductal carcinoma - See synoptic report B. 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 Erum New MD Report Electronically Reviewed and Signed Out By Erum New MD 11/17/2024 15:33:24 Microscopic Description and Comment: Microscopic examination substantiates the above cited diagnosis. The attending pathologist personally reviewed one or more Faxitron radiograph(s) taken for the purpose of radiographic/pathologic correlation, including localizing clip(s) and/or calcification(s). The radiographic findings were correlated with the histologic findings. The areas of interest were embedded for histologic examination. The imaging findings support the above diagnosis. History: The patient is a 79-year-old woman with history of left lower outer quadrant invasive ductal carcinoma. Operative Procedure: Left simple mastectomy and sentinel lymph node biopsy. Specimen(s) Received: A: Left breast stitch in axillary tail B: Left axillary sentinel lymph nodes Gross Description: Received in two formalin jars labeled with the patient's identifiers. A. Labeled left breast stitch axillary tail -Collected: 170 on 11/11/2024 -Received: 172 on 11/11/2024 -Placed in formalin: 173 on 11/11/2024 -Cold ischemic time: 30 minutes -Formalin fixation time: 27.5 hours really sorry really have time to complain going to do it anyway this is my mastectomy heart is bigger jar I did saying when I carried back heavy blue that is stain is everywhere right got X -Specimen Dimensions: Medial to Lateral: 19 cm Superior to Inferior: 14 cm Anterior to Posterior: 3.5 cm - Skin: Dimensions: 19 x 8.5 cm Nipple/areola diameter: 3 cm areola, 1 cm in diameter flat, centrally ulcerated, indurated nipple Skin lesions: 2.5 cm inferior to the nipple is a 4 x 1.5 cm scar-like depression with dusky granularity. There are several slightly raised granular skin lesions ranging from 0.3-1 cm in greatest dimension. -Margins inked: Anterior/Superior: Blue Anterior/Inferior: Green Posterior: Black -Sectioned: Medial to lateral -Number of slices: Sixteen -Nipple/areolar complex centered in slice: 8 -Tumor 1, nipple tumor: Size: 1.5 x 1.2 x 0.8 cm Location: B2 and involving nipple Closest margin: Superior skin margin and deep margin both 4 cm -Tumor 2: Size: 2.8 x 2.2 x 1.9 cm Location: Inferior central Closest margin: Deep/inferior-0.3 cm Involves the skin at the described inferior skin defect/induration -Tumor 3: Size: 2.3 x 1.5 x 1.3 cm Location: Inferior lateral Closest margin: Deep/inferior-0.3 cm -Tumor 2 and tumor 3 directly abut each other consistent with a dumbbell-shaped lesion with an overall greatest dimension of at least 5.5 cm medial to lateral: -Specimen radiographed: Yes -Radiograph findings: Biopsy clips located in tumor 2 and tumor 3 -Specimen photograph: Yes -Diagram: Yes -Additional notes: The remaining breast consists of yellow adipose tissue with very little white fibrous tissue Summary of sections: A1-A3 Nipple/tumor 1, medial to lateral (slices 6 And 7) A4-A6 Tumor 2, medial to lateral, slice 6 And 7 A7 Junction between tumor 2 And tumor 3, slice 8 A8-A10 Tumor 3, medial to lateral, slice 8 And 9 A11 Upper inner quadrant A12 Lower inner quadrant A13 Lower outer quadrant superior to lesions A14 Upper outer quadrant Jar: 2 B. Labeled left axillary sentinel lymph nodes are two firm putative lymph node with associated adipose tissue (2.5 x 1.5 x 0.8 cm and 2.8 x 1 x 0.4 cm). Sectioning through the first lymph node shows an embedded localization clip with a 0.5 cm indurated focus consistent with tumor the second node also has a grossly suspicious cut surface. Labeled B1-sectioned lymph node with localization clip; B2-sectioned lymph node. Jar [facility]/12/[facility]24 09:07 PA(s): Mireille Bernard, MS, PA ([facility]) CANCER CASE SUMMARY FOR INVASIVE CARCINOMA OF THE BREAST Procedure: Total mastectomy (including nipple-sparing and skin-sparing) Lymph node sampling: [place] lymph node(s) Specimen laterality: Left Tumor site invasive carcinoma: Lower outer quadrant Nipple Histologic type of invasive carcinoma: Invasive ductal carcinoma (no special type or not otherwise specified) Tumor size: Greatest dimension: 55mm Histologic grade ([place] Histologic Score): Tubular differentiation: Score 3 Nuclear pleomorphism: Score 3 Mitotic rate: Score 3 Overall grade: Grade 3: scores of 8 or 9 Tumor focality: Multiple foci of invasive carcinoma Number of foci: 2 Size(s) of individual foci: 55, 15 mm Ductal carcinoma in situ (DCIS): DCIS is present Negative for extensive intraductal component (EIC) Estimated size (extent) of DCIS (greatest dimension using gross & microscopic evaluation): at least 50 mm Architectural patterns: Solid Nuclear grade: Grade 3 (high) Necrosis: Present, central (expansive c omedo necrosis) Extent of tumor: Invasive carcinoma directly invades into the dermis or epidermis with skin ulceration (classified as T4b) Margins for invasive carcinoma: Margins negative for invasive carcinoma Margin: posterior Greater than 5mm Margins for DCIS: Margins uninvolved by DCIS Greater than 5 mm Margin: posterior Lymph nodes: Total number of lymph nodes examined (sentinel and nonsentinel): 2 Number of sentinel nodes examined: 2 Lymph node involvement: Regional lymph nodes present Tumor present in regional lymph node(s) Number of lymph nodes with macrometastases (>2 mm):2 Largest Sorin Metastatic Deposit: Size of largest sorin metastatic deposit: 9 mm Extranodal extension: Present, 2mm or less [place] node evaluation: H&E, multiple levels Response to presurgical therapy: No known presurgical therapy Lymphovascular Invasion: Present Extensive (LVI in two or more blocks) Dermal Lymphovascular Invasion: Present Distant Site(s) Involved, if applicable (select all that apply): Not applicable Pathologic Stage Classification (pTNM, AJCC 8th Edition): TNM descriptors: m (multiple foci of invasive carcinoma) Primary tumor (invasive carcinoma) (pT): pT4b: Ulceration and/or ipsilateral satellite nodules and/or edema (including peau d o range) of the skin which do not meet the criteria for inflammatory carcinoma Regional Lymph Nodes (pN): Modifier: (sn): Only sentinel node(s) evaluated. Lymph nodes (pN): pN1a: Metastases in 1 to 3 axillary lymph nodes, at least 1 metastasis greater than 2.0 mm Distant metastasis (pM): Not applicable Breast Biomarker Testing performed on Previous Case: [id number] Estrogen Receptor (ER): Positive Soraida score 8/8 Progesterone Receptor (PgR): Positive Soraida score 7/8 HER2 (by immunohistochemistry): Positive (Score 3+) The pathologic stage assigned here should be regarded as provisional, and may change after integration of clinical data not provided with this report. CAP VERSION: InvasiveBreast 4.10 By this signature, I attest that the above diagnosis is based upon my personal examination of the slides(and/or other material). Addenda/Procedures The performance characteristics of some immunohistochemical stains, fluorescence in-situ hybridization tests and immunophenotyping by flow cytometry cited in this report (if any) were determined by the Surgical Pathology and Flow Cytometry Departments at [facility] as part of an ongoing machined parts quality inspector program and in compliance with federally mandated regulations drawn from the Clinical Laboratory Improvement Act of 1988 (CLIA '88). Some of these tests rely on the use of analyte specific reagents and are subject to specific labeling requirements by the US Food and Drug Administration. Such diagnostic tests may only be performed in a facility that is certified by the Department of Health and Human Services as a high complexity laboratory under CLIA '88. The FDA has determined that such clearance or approval is not necessary. This test is used for clinical purposes. It should not be regarded as investigational or for research. Nevertheless, federal rules concerning the medical use of analyte specific reagents require that the following disclaimer be attached to the report: This test was developed and its performance characteristics determined by the Surgical Pathology and Flow Cytometry Departments of [facility]. It has not been cleared or approved by the U. S. Food and Drug Administration. IMAGES AND SCANNED DOCUMENTS, IF INCLUDED, ONLY VIEWABLE IN PDF VERSION OF REPORT us Madison Paula MD PhD LAB PATHOLOGY ORDERABLES F inal Result PATHOLOGY [facility] 3rd Floor [place], [place] [phone] * W[place] AN ELECTIVE ENDOTRACHEAL AIRWAY, [place] AN PROCEDURE PLACEHOLDER (11/11/2024 4:23 PM CDT) Clifton Desir CRNA - 11/11/2024 4:23 PM CDT Clifton Blackburn CRNA 11/11/2024 4:27 PM Airway Patient location: OR Urgency: elective Date/time: 11/11/2024 4:10 PM Indications for airway management: anesthesia Difficult airway: no Staff: Supervising provider: Norma Watt MD Placed by: ADMISSIONS CLERK: Clifton Blackburn CRNA Emergent airway documentation: Risks and benefits discussed: yes Consent obtained: yes Consent given by: patient Airway prep: Preoxygenated: yes Patient position: sniffing Mask difficulty assessment: 1 - vent by mask Sedation level during airway: GA Final airway details: Final airway type: endotracheal airway Tube type: ETT ETT size: 7.0 mm Cuffed: yes Technique used for successful ETT placement: direct laryngoscopy Insertion site: oral Blade type: Tay Blade size: 3 Cormack-Lehane (direct): grade I - full view of glottis Initial cuff pressure: 21 cm H2O Cuff inflated with: air ETT to teeth: 21 cm Placement verified by: auscultation and CO2 detection Airway secured with: silk tape Number of attempts: 1 Ventilation between attempts: BVMno Norma Watt MD ANESTHESIA ORDERABLES Fin al Result * [place] AN PROCEDURE PLACEHOLDER (11/11/2024 3:48 PM CDT) Narrative Gino Christian MD - 11/11/2024 3:48 PM CDT Gino Christian MD 11/12/2024 7:32 AM Peripheral Block Patient location during procedure: pre-op holding Reason for block: post-op pain management per surgeon request Ultrasound image in chart or stored: yes Block type: single shot Laterality: left Block type: PECS I Staff: Supervising provider: Gino Christian MD Placed by: Anesthesiologist: Gino Christian MD Procedure prep: Preprocedure checklist: patient identified, procedure contraindications assessed, site marked, procedure consent, surgical consent, IV checked, risks, benefits and alternatives discussed, monitors and equipment checked and timeout performed Patient position: head of bed elevated Procedure performed while patient: sedate with meaningful contact Monitoring: ECG, oximetry and blood pressure Supplemental O2: nasal cannula Prep solution: chlorhexidine/alcohol PPE: provider hat/mask, sterile gloves and sterile probe cover and gel Peripheral nerve block: Technique: ultrasound guided Needle type: insulated, short-bevel and echogenic Needle gauge: 22 G Needle length: 80 mm Injection assessment: injection made incrementally with constant monitoring, negative aspiration for heme, no paresthesias noted, normal resistance to injection and see flowsheet for medication details Assessment: Block success: full evaluation pending Events: patient tolerated procedure well with no complications Norma Watt MD ANESTHESIA ORDERABLES Abhi tammie Result - Final * [place] AN PROCEDURE PLACEHOLDER (11/11/2024 3:47 PM CDT) Narrative Gino Christian MD - 11/11/2024 3:47 PM CDT Gino Christian MD 11/12/2024 7:32 AM Peripheral Block Patient location during procedure: pre-op holding Reason for block: post-op pain management per surgeon request Ultrasound image in chart or stored: yes Block type: single shot Laterality: left Block type: PECS II Staff: Supervising provider: Gino Christian MD Placed by: Anesthesiologist: Gino Christian MD Procedure prep: Preprocedure checklist: patient identified, procedure contraindications assessed, site marked, procedure consent, surgical consent, IV checked, risks, benefits and alternatives discussed, monitors and equipment checked and timeout performed Patient position: sitting and head of bed elevated Procedure performed while patient: sedate with meaningful contact Monitoring: oximetry Supplemental O2: nasal cannula Prep solution: chlorhexidine/alcohol Skin infiltrated with lidocaine 1%: yes Peripheral nerve block: Technique: ultrasound guided Needle type: short-bevel and echogenic Needle gauge: 21 G Needle length: 80 mm Injection assessment: injection made incrementally with constant monitoring, negative aspiration for heme, no paresthesias noted, normal resistance to injection and see flowsheet for medication details Assessment: Block success: full evaluation pending Events: patient tolerated procedure well with no complications Norma Watt MD ANESTHESIA ORDERABLES Abhi tammie Result - Final * Radiologic Examination of Surgical Specimen (11/11/2024 3:38 PM CDT) Anatomical Region Laterality Modality Breast N/A Mammography 11/11/2024 5:45 PM CDT Impressions 11/11/2024 5:45 PM CDT FINDINGS/IMPRESSION: A LEFT surgical specimen was received from the operating room and was imaged using digital radiography. The lesion of interest (lymph node and Magseed) is included within the surgical specimen. Electronically signed by: Latricia Alva M.D. Narrative 11/11/2024 5:45 PM CDT EXAMINATION: RADIOLOGIC EXAMINATION OF LEFT SURGICAL SPECIMEN HISTORY: 79-year-old woman with recently diagnosed multicentric left breast malignancy and metastatic left axillary lymph node status post Magseed localization prior to sentinel lymph node biopsy and left mastectomy. Procedure Note Latricia Alva MD - 11/11/2024 EXAMINATION: RADIOLOGIC EXAMINATION OF LEFT SURGICAL SPECIMEN HISTORY: 79-year-old woman with recently diagnosed multicentric left breast malignancy and metastatic left axillary lymph node status post Magseed localization prior to sentinel lymph node biopsy and left mastectomy. IMPRESSION: FINDINGS/IMPRESSION: A LEFT surgical specimen was received from the operating room and was imaged using digital radiography. The lesion of interest (lymph node and Magseed) is included within the surgical specimen. Electronically signed by: Latricia Alva M.D. Madison Paula MD PhD IMG MAMMO PROCEDURES Final Result * eGFR (11/11/2024 2:07 PM CDT) eGFR >90 >=60 mL/min/1. 73 m2 Comment: Interpretive Data Reference Interval Normal >/= 90 mL/min/1.73m2 Mildly decreased* 60 - 89 mL/min/1.73m2 Mildly to moderately decreased 45 - 59 mL/min/1.73m2 Moderately to severely decreased 30 - 44 mL/min/1.73m2 Severely decreased 15 - 29 mL/min/1.73m2 Kidney Failure < 15 mL/min/1.73m2 *Relative to young adult level Estimated glomerular filtration rate is determined by the 2020 CKD-EPI equation recommended by the National [employer] (A Unifying Approach to GFR Estimation: Recommendations of the NKF-ASK Task Force on Reassessing the Inclusion of Race in Diagnosing Kidney Disease, JASN 202). The CKD-EPI equation should not be used for patients with unstable renal function and has not been validated in children and those over 70. Current interpretive data was last reviewed 2021. Blood 11/11/2024 2:07 PM CDT 11/11/2024 2:54 PM CDT us Gisell Schultz NP LAB BLOOD ORDERABLES Final R esult [facility] Department [place] [address] * (ABNORMAL) Comprehensive metabolic panel (11/11/2024 2:07 PM CDT) Sodium 134(L) 135 - 145 mmol/L Potassium, pl 3.5 3.3 - 4.9 mmol/L [facility] Chloride 94(L) 97 - 110 mmol/L [facility] CO2 26 22 - 32 mmol/L [facility] Anion gap 14 2 - 15 mmol/L [facility] BUN 8 6 - 25 mg/dL [facility] Creatinine 0.57(L) 0.60 - 1.10 mg/dL [facility] Glucose 133 70 - 199 mg/dL [facility] Comment: Interpretive Data Fasting glucose >/= 126 mg/dl is diagnostic for diabetes. Fasting is defined as no caloric intake for at least 8 hours. Fasting glucose between 100 mg/dl to 125 mg/dl is diagnostic of prediabetes. In a patient with classic symptoms of hyperglycemia or hyperglycemic crisis, a random glucose >/= 200 mg/dl is diagnostic for diabetes. In the absence of unequivocal hyperglycemia, results should be confirmed by repeat testing. The classification and Diagnosis of Diabetes Diabetes Care 202; 46: S19-S40. Current interpretive data was last revised 2022. Calcium 9.9 8.5 - 10.3 mg/dL [facility] Bilirubin, total 0.4 0.1 - 1.2 mg/dL [facility] Protein, pl 7.6 6.5 - 8.5 g/dL [facility] Albumin 4.1 3.5 - 5.0 g/dL [facility] Alk phos 84 40 - 130 Units/L [facility] ALT 12 7 - 45 Units/L [facility] AST 23 10 - 45 Units/L [facility] Blood 11/11/2024 2:07 PM CDT 11/11/2024 2:54 PM CDT us Gisell Schultz [employer] LAB BLOOD ORDERABLES Final R esult [facility] [place] [address] from Last 3 Months Insurance Advance Directives For more information, please contact: [phone] * Full Code (Latest Code Status on File) Date Activated Date Inactivated Comments 11/11/2024 8:25 PM 11/12/2024 2:24 PM Care Teams Tankroom Worker Relationship Specialty Start Date End Date Amos Thomas MD PCP - General 07/04/14 Sarah Singh MD [address] [facility], [place] [address] [place] [address] Medical Oncologist/Animal Care Service Worker Medical Oncology 08/31/24
--- OUTSIDE RECORDS SUMMARY | 2025-02-03 14:16 | XMS_ITS | Data Portability ---
[facility] Organization [facility] Address [address] [place] [address] Care Team Providers Care Ruby Software Developer Name Role Phone AMOS THOMAS Primary Care Provider Unavailabl e Assessment Encounter Date Assessment Date Assessment LastModified by Organization Details LastModified Time 10/15/2024 10/15/[address] on alcohol and tobacco has been discussed in detail she says she is not going to do chemotherapy I have told her just wait and see what plans are recommended she has a echocardiogram that is scheduled at [facility] she will see me back in 2 months and we will await to see what the cancer team offers her because of the munson problems with the Breztri we will go to the generic Advair her PHQ-9 is reviewed she does not want to do anything about that currently Not available 10/16/2024 14:18:57 12/01/2024 12/01/2024 COPD albuterol and Advair did not tolerate the Breztri hypertension amlodipine breast cancer she is going to decide the probably do some radiation she is not going to do chemotherapy but they are going to put a definitive plan together for her she will see me back in 2 months she has been advised for at least a decade if not 15 years by me to quit smoking and cut way back on alcohol [email or web address] Not available 12/04/2024 22:03:54 12/22/2024 12/22/2024 Triamcinolone Keflex call if not improved advised to quit smoking [email or web address] Not available 01/02/2025 17:28:05 01/26/2025 01/26/2025 Blood pressure stable eczema on finger has resolved rhinitis stable breast cancer oncology COPD still smoking that has been discussed again chronic low back pain is stable history of hyponatremia asymptomatic at this time [email or web address] Not available 01/29/2025 15:59:04 Plan of Treatment Reminders Order Date Submit Date Provider Last Modified By Organization Details Last Modified Time Details Appointments ANY 15 2024 11:00A M Amos Thomas MD Not available Not available Not available Lab None recorded. Referral None recorded. Procedures None recorded. Surgeries None recorded. Imaging None recorded. Medication Orders cephalexi n 500 mg tablet 2024 [facility] [address] [place] [address], [id number], 01/05/2025 05:02:10 triamcino lone acetonide 0.1 % topical cream [address] [facility], [address] [place] [address], [id number], 12/22/2024 17:11:09 Advair Diskus 250 mcg-50 mcg/dose powder for inhalatio n [address] [facility], [address] [place] [address], [id number], 01/26/2025 09:48:22 albuterol sulfate HFA 90 mcg/actua tion aerosol inhaler [address] [facility], [address] [place] [address], [id number], 12/01/2024 11:51:49 Advair Diskus 250 mcg-50 mcg/dose powder for inhalatio n 2024 025 [facility], [address] [place] [address], [id number], 01/26/2025 09:48:22 Patient TargetsNo targets recorded. Patient Instructions Encounter Date Encounter Id Patient Instructions Last Modified By Organization Details Last Modified Time 10/15/2024 [id number] A healthy lifestyle: care instructions [email or web address] Not available 10/15/2024 17:58:26 12/01/2024 [id number] A healthy lifestyle: care instructions Not available 12/01/2024 11:51:49 Quitting Tobacco : Care Instructions [email or web address] Not available 12/01/2024 11:51:49 12/22/2024 [id number] Quitting Tobacco : Care Instructions Not available 12/22/2024 17:11:09 A healthy lifestyle: care instructions [email or web address] Not available 12/22/2024 17:11:09 01/26/2025 [id number] Quitting Tobacco : Care Instructions [email or web address] Not available 01/26/2025 13:20:10 A healthy lifestyle: care instructions [email or web address] Not available 01/26/2025 13:20:10 Reason for Referral None Reported. Results Created Date Observation Date Name Description Value Unit Range Abnormal Flag Note LastModifiedBy Organization Detail LastModifiedTime 09/22/1909/22/2024 MAMMO , diagn ostic , bilat eral No observ ation record ed. [facility] [place] [place], [address], 09/24/2024 11:27:13 Result Notes None recorded. Problems Name Problem SNOMED Code Status Onset Date Resolution Date Notes Provider Name and Address Organization Details Recorded Time Essential hypertension 39386323 Active 2023 Amos Thomas MD Attn: Noa stallworth,[address] [place], [address], [facility] 13:16:43 Chronic low back pain 212038771 Active 2023 Amos Thomas MD Attn: Noa stallworth,[address] [place], [address], [place] - [facility] 4 13:16:44 Hyponatremia 14818451 Active 2023 Amos Thomas MD Attn: Noa stallworth,[address] [place], [address], [facility] - [facility] 4 13:16:45 Nicotine dependence 90432937 Active 2023 Amos Thomas MD Attn: Noa stallworth,[address] [facility], [place], [address], [place] - [facility] 4 13:16:47 Chronic obstructive pulmonary disease 98115535 Active 2023 Amos Thomas MD Attn: Noa stallworth,[address] [facility], [place], [address], [facility] - [facility] 4 13:16:49 Cough 12780322 Active 2023 LYNN Francois, [place] - [facility] 4 13:10:49 Abdominal pain 64708982 Active 2023 LYNN Francois, [place] - [facility] 4 13:10:49 History of malignant neoplasm of breast 250906732 Active 2024 Amos Thomas MD Attn: Noa stallworth,[address] [facility], [place], [address], [facility] - [facility] 5 22:04:13 Problem Notes None recorded. Procedures Surgical History Date Name Laterality Status Provider Name and Address Organization Details Recorded Time 07/28/18 89 Total hysterectomy completed Jojo Barcenas MA [facility] 10/15/2024 15:07:10 Knee Surgery completed Ivan Castanon MA [facility] 10/06/2023 12:21:01 Tonsillectomy completed Ivan Castanon MA [facility] 10/06/2023 12:21:09 Dilation and Curettage completed Ivan Castanon MA [facility] 10/06/2023 12:21:16 Imaging Results None recorded. Procedure Notes None recorded. Medical Equipment None Reported. Allergies Allergen ID Allergen Name Allergen Category Reaction Reaction Severity Criticality Documentation Date Start Date Code Code System Note Provider Name and Address Organization Details Recorded Time 107786 Substance with sulfonami de structure and antibacte rial mechanism of action (substanc e) medicatio n itching other Not available Not available low 10/06/20232024 34088 8003 SNOMED As a child LYNN Hoffmann, [place] - [facility] 5 10:14:03 728215 Demerol medicatio n Not available Not available Not available 01/06/2024 79924 1 RxNorm Alissagerald Crowell MA null, [place] - [facility] 4 11:25:19 514734 meperidin e medicatio n vomiting Not available low 10/15/20242015 6754 RxNorm unrec ogniz ed react ion (text : Nause a And Vomit ing, code: 74113 000) (from [facility]) Jojo Barcenas MA null, [place] - [facility] 5 10:14:08 Medications Name Sig Start Date Stop Date Status Note LastModified by Organization Details LastModified Time fluticasone 250 mcg-salmete rol 50 mcg/dose blistr powdr for inhalation INHALE ONE PUFF BY MOUTH TWICE A DAY FOR BREATHING 01/26 completed Not Available Not Available Not Available triamcinolo ne acetonide 0.1 % topical cream APPLY TOPICALLY TO RASH EVERY NIGHT AT BEDTIME active Not Available Not Available No t Available amlodipine 10 mg tablet TAKE 1 TABLET BY MOUTH DAILY 2024 active Not Available Not Available Not Avai lable cephalexin 500 mg capsule TAKE ONE TABLET BY MOUTH THREE TIMES A DAY, MORNING, MIDDAY AND BEDTIME FOR INFECTION 01/26 completed Not Available Not Available Not Available cephalexin 500 mg tablet Take 1 tablet 3 times a day by oral route for 7 days. 01/05 completed Not Available Not Available Not Available gabapentin 100 mg capsule TAKE 1 CAPSULE BY MOUTH TWICE DAILY 10/05 completed Not Available Not Available Not Available albuterol sulfate HFA 90 mcg/actuati on aerosol inhaler INHALE TWO PUFFS BY MOUTH EVERY 4 HOURS active Not Available Not Available No t Available Symbicort 160 mcg-4.5 mcg/actuati on HFA aerosol inhaler INHALE 2 PUFFS BY MOUTH TWICE DAILY 10/05 completed Not Available Not Available Not Available Symbicort 80 mcg-4.5 mcg/actuati on HFA aerosol inhaler INHALE 2 PUFFS BY MOUTH TWICE DAILY 10/05 completed Not Available Not Available Not Available Breztri Aerosphere 160 mcg-9mcg-4. 8mcg/actuat ion HFA aerosol inhaler INHALE 2 PUFFS BY MOUTH TWICE DAILY 12/01 completed Not Available Not Available Not Available Vitals Date Recorded Body height Body mass index (BMI) Body weight Heart rate Oxygen saturation Oxygen saturation in Arterial blood by Pulse oximetry Systolic And Diastolic Provider Name and Address Organization Details Last Updated DateTime 5 152.4 cm 21.7 kg/m2 75663.7 5 g 66 /min 95 % 95 % 140/58 mm[Hg] Jojosuzie Barcenas [facility] 5 15:10:47 Date Recorded Body height Body mass index (BMI) Body weight Heart rate Oxygen saturation Oxygen saturation in Arterial blood by Pulse oximetry Systolic And Diastolic Provider Name and Address Organization Details Last Updated DateTime 5 152.4 cm 21.2 kg/m2 57599.7 7 g 91 /min 94 % 94 % 124/74 mm[Hg] Jojosuzie Barcenas [facility] 5 10:13:46 Date Recorded Body height Body mass index (BMI) Body weight Heart rate Oxygen saturation Oxygen saturation in Arterial blood by Pulse oximetry Systolic And Diastolic Provider Name and Address Organization Details Last Updated DateTime 5 152.4 cm 21.3 kg/m2 26425.2 9 g 74 /min 96 % 96 % 130/62 mm[Hg] Alissa Crowell MA [facility] 5 10:21:20 Date Recorded Body height Body mass index (BMI) Body weight Heart rate Oxygen saturation Oxygen saturation in Arterial blood by Pulse oximetry Systolic And Diastolic Provider Name and Address Organization Details Last Updated DateTime 5 152.4 cm 21.2 kg/m2 89780.4 1 g 74 /min 96 % 96 % 128/64 mm[Hg] Jojosuzie Barcenas [facility] 5 09:48:00 Social History Question Answer Notes LastModified by Organizat ion Details LastModified Time Tobacco Smoking Status Current Every Day Smoker Ivan Castanon MA [facility] 10/06/2023 12:03:26 Do You Have An Advance Directive? No Patient Declined Information . Information not available 02/10/2024 Are You Blind [...] Or The Highest Degree You Have Received? [id number] Information not available 02/10/2024 Are There Any Guns Present In Your Home? No Information not available 10/06/2023 In The Past 7 Days, How Many Days Did You Exercise? 0 Information not available 02/10/2024 In The Past 7 Days, How Much Pain Have You Langston? Some Information not available 02/10/2024 In General, [...] Past 7 Days, How Often Have You Langston Sleepy In The Daytime? Rarely Information not available 02/10/2024 On They Days When You Drank Alcohol, How Often Did You Have 4 Or More Drinks At A Time? More Than 3 Times Per Week Information not available 02/10/2024 # Alcohol Drinks Per Week 70 Information not available 02/10/2024 What Was The Date Of Your Most Recent Tobacco Screening? 01/26/2025 Information not available 01/26/2025 What Is Your Current Pack Years? 20-29packyea [...] PPD Information not available 10/06/2023 Do You Use Sunscreen Routinely? No Information not available 10/06/2023 Has Tobacco Cessation Counseling Been Provided? Yes Information not available 06/09/2024 On What Date Was Tobacco Cessation Counseling Provided? 01/26/2025 Information not available 01/26/2025 How Many Years Have You Smoked Tobacco? 50 Information not available 10/06/2023 Sex: Female Functional Status Question Answer Note LastModified by Organizat ion Details LastModified Time Do you use any illicit or recreational drugs? No Information not available 10/06/2023 Do you or have you ever used any other forms of tobacco or nicotine? No Information not available 10/06/2023 What is your level of alcohol consumption? Moderate 10 beers per day - over 7-8 hours Information not available 02/10/2024 Are you currently employed? No Information not available 01/06/2024 Are you able to care for yourself? Yes Information not available 10/06/2023 What is your exercise level? None Information not available 10/06/2023 Mental Status Question Answer Note LastModified by Organizat ion Details LastModified Time Do you feel stressed (tense, restless, nervous, or anxious, or unable to sleep at night)? [id number] pt states because she's in pain Information not available 10/06/2023 Family History Relationship Description Onset Age of [...] Problems N Kidney or Bladder Problems N Blood Clots N COPD Y Depression N GI Problems N Have you had a mammogram in the last yea r? N Skin Problems N Anemia N Heart Attack (ME) N Anxiety Disorder N Diabetes N Muscle, Joint, or Bone Problems N Seizures/Epilepsy N Have you had a colonoscopy in the last 1 0 years? Y Acid Reflux (GERD) N Cancer N Stroke Y Asthma N Allergies N Have you had a PSA blood test in the las t year? N High Cholesterol N Hepatitis N Liver Disease N Headaches N Heart Failure N Osteoporosis N Gynecological History Statement/Question Response If Post Menopausal, Age at Menopause Obstetrics History GPAL:G 0 P 0 0 0 0 Immunizations Vaccine Type Date Status Note Provider Nam e and Address Organization Details Recorded Time Influenza, adjuvanted, trivalent, PF 8 completed Beth Steinberghl null, [place] - [facility] 02/05/2024 10:41:14 Influenza, high-dose, quadrivalent, PF 2 completed Beth Steinberghl [place], [place] [facility] 02/05/2024 10:41:14 Influenza, high-dose, quadrivalent, PF 3 completed Beth Stein[place]hl [place] [facility] 02/05/2024 10:41:14 Influenza, high-dose, quadrivalent, PF 9 completed Beth Whitaker [place] [facility] 02/05/2024 10:41:14 Influenza, high-dose, quadrivalent, PF 0 completed Beth Stein[place]hl [place] [facility] 02/05/2024 10:41:14 Influenza, adjuvanted, quadrivalent, PF 0 completed Beth [place]hl [place] [facility] 02/05/2024 10:41:14 Influenza, adjuvanted, quadrivalent, PF 1 completed Beth Whitaker [place] [facility] 02/05/2024 10:41:14 COVID-19 vaccine, vector-nr, rS-Ad26, PF, 0.5 mL 1 completed Beth Steinberghl [place] [facility] 02/05/2024 10:41:14 Pneumococcal conjugate PCV 13 5 completed Beth Centereach [place], [place] [facility] 02/05/2024 10:41:14 Influenza, high-dose, trivalent, PF 7 completed Beth Cent[place] [facility] 02/05/2024 10:41:14 Influenza, high-dose, trivalent, PF 6 completed Beth Cent[place] [facility] 02/05/2024 10:41:14 Influenza, high-dose, trivalent, PF 4 completed Beth Cent[place] [facility] 02/05/2024 10:41:14 Influenza, high-dose, trivalent, PF 5 completed Beth Cent[place] [facility] 02/05/2024 10:41:14 Influenza, high-dose, trivalent, PF 9 completed Beth Cent[place] [facility] 02/05/2024 10:41:14 Influenza, high-dose, trivalent, PF 4 completed Amos Thomas MD Attn: Accounting,[address] [place], [address], [facility] 06/20/2024 16:18:19 Past Encounters Encounter ID Performer Location Encounter Start Date Encounter Closed Date Diagnosis/Indication Diagnosis SNOMED-CT Code Diagnosis ICD10 Code Diagnosis Note [id number] [facility] [address] [place] [id number] 10/06/2023 11:30:21 10/06/2023 12:40:41 Essential hypertension 82106950 I10 Chronic low back pain 27 9014066 M54.50 Chronic ob structive pulmonary disease 29730986 J44.9 Hyponatremia 87608003 E8 7.1 Nicotine dependence 5629 4008 F17.478 [id number] MD [facility] (Adult Med) [address] [place] [id number] 01/06/2024 11:18:00 01/06/2024 12:21:04 Essential hypertension 84013435 I10 Chronic low back pain 27 4979622 M54.50 Hyponatremia 11548732 E8 7.1 Nicotine dependence 5629 4008 F17.200 Chronic ob structive pulmonary disease 18419218 J44.9 [id number] MD [facility] (Adult Med) [address] [place] [id number] 02/10/2024 11:47:44 02/10/2024 12:24:17 Adult health examination 787030575 Z00.00 Health Risk Assessment collected and reviewed [id number] Amos Thomas MD [facility] (Adult Med) [address] [place] [id number] 03/09/2024 11:09:30 03/09/2024 12:51:07 Chronic obstructive pulmonary disease 68455613 J44.9 Essential hypertension 53182214 I10 Hyponatremia 55625305 E8 7.1 Nicotine dependence 5629 4008 F17.540 [id number] [facility] [address] [place] [id number] 06/09/2024 12:30:40 06/09/2024 13:09:16 Smoker 05320473 F17.200 Body mass index 20-24 - normal 992657069 Z68.22 Administra tion of influenza vaccine 75014008 Z23 Essential hypertension 59922723 I10 Chronic ob structive pulmonary disease 13724770 J44.9 Cough 94958093 R05.9 Abdominal pain 06852939 R10.9 [id number] Amos Thomas MD [facility] (Adult Med) [address] [place] [id number] 08/13/2024 14:06:51 08/13/2024 15:05:26 Smoker 88668989 F17.200 Recurrent falls 95412399 2 R29.6 Chronic ob structive pulmonary disease 42788126 J44.9 Essential hypertension 78160869 I10 [id number] Amos Thomas MD [facility] (Adult Med) [address] [place] [id number] 0 10/15/2024 14:55:59 10/15/2024 15:59:46 Body mass index 20-24 - normal 284414736 Z68.22 Overweight 704770671 E66 .3 Chronic ob structive pulmonary disease 45370310 J44.9 Essential hypertension 02943605 I10 Hyponatremia 63849311 E8 7.1 [id number] Amos Thomas MD [facility] (Adult Med) [address] [place] [id number] 12/01/2024 09:50:35 12/01/2024 10:37:58 Normal weight 66500804 Z68.21 Overweight 254701180 E66 .3 Smoker 85724962 F17.200 Chronic ob structive pulmonary disease 93417435 J44.9 [id number] Amos Thomas MD [facility] (Adult Med) [address] [place] [id number] 12/22/2024 09:56:00 01/29/2025 18:22:22 [id number] Amos Thomas MD [facility] (Adult Med) [address] [place] [id number] 12/22/2024 10:05:23 12/22/2024 10:39:34 Smoker 70796447 F17.200 Body mass index 20-24 - normal 829699348 Z68.21 BMI 21.3 Eczema 55502947 L30.9 [id number] Amos Thomas MD [facility] (Adult Med) [address] [place] [id number] 01/26/2025 09:36:18 01/26/2025 10:40:59 Body mass index 20-24 - normal 783571048 Z68.21 BMI 21.3 Smoker 35760099 F17.200 Essential hypertension 14006717 I10 Hyponatremia 35908474 E8 7.1 Chronic low back pain 27 0038222 M54.50 Chronic ob structive pulmonary disease 49935453 J44.9 Health Concerns Section Related Observation LastModified by Organization Detai ls LastModified Time None Recorded Concern Status LastModified by Organization Details LastModified Time None Recorded Advance Directives Directive N: Patient declined informat ion. Payers Insurance Date Sequence Insurance Name Policy Number Policy Smith Covered Member ID Smith Member ID Guarantor Name 01/31/2025 1 [employer] (MEDICARE REPLACEMENT/A DVANTAGE - HMO) [id number] Ai Vargas [id number] Ai Vargas Notes Date Note Type Note Provider Name and Address Organization Details Recorded Time 10/15/2024 text/html she has been ove r to see the cancer specialist and they are doing additional steps to figure out what the best plan for her is she is having trouble affording her inhalers for COPD blood pressure is 140/58 she was taking the amlodipine Jojo Barcenas [place] null, [place] - [facility] 10/18/2024 11:59:25 12/01/2024 text/html COPD is doing fi ne still smoking and drinking she has had her mastectomy Amos Thomas MD Attn: Accounting, [address] [facility], [place], [address], [facility] 12/04/2024 22:04:38 12/22/2024 text/html Right index fing er red maybe little painful no trauma Amos Thomas MD Attn: Accounting, [address] [facility], [place], [address], [facility] 01/02/2025 17:28:29 01/26/2025 text/html Finger resolvedC OPD stableWorking with radiation therapy about next move on her breast cancerBlood pressure looks good Amos Thomas MD Attn: Accounting, [address] [facility], [place], [address], [facility] 01/29/2025 15:59:37 OBGyn Episode No OBEpisode recorded.
--- OUTSIDE RECORDS SUMMARY | 2025-02-03 14:16 | XMS_ITS ---
Author Organization [address] Address [address] [place] [address] Care Team Providers Care Microbiological Laboratory Technician Name Role Phone Amos Thomas MD Primary Care Provider [phone] Sarah Singh MD Unavailable [phone] Active Problems Problem Noted Date Diagnosed Date Breast cancer in female 11/11/2024 Malignant neoplasm of lower- outer quadrant of left breast of female, estrogen receptor positive 09/17/2024 Hypertension 04/18/2011 Current Treatment and Therapy Plans Pertuzumab / Trastuzumab 21 Day Cycles - Breast* Plan Start Date:11/22/2024 Plan Provider:Sarah Singh MD Linked Problems Malignant neoplasm of lower- outer quadrant of left breast of female, estrogen receptor positive (HCC) Treatment Medications Current Day (Prepa ration - Planned for 11/22/2024) Next Day (Day 1, Cycle 1 - Planned for 11/23/2024) pertuzumab (PERJETA)trastuzumab-dkst (OGIVRI) No medications scheduled. pertuzumab (PERJETA) 840 mg in sodium chloride 0.9% 250 mL IVPBtrastuzumab-dkst (OGIVRI) 399 mg in sodium chloride 0.9% 250 mL IVPB Past Treatment and Therapy Plans No past plan information found. Lifetime Dose Tracking * Chemical Lifetime Dose Automatic Entry Manual Entr y DLP 180 mGycm 180 mGycm 0 mGycm
--- OUTSIDE RECORDS SUMMARY | 2025-02-03 14:16 | XMS_ITS | Clinical Summary ---
Author Organization [address] Address [address] [place] [phone] Care Team Providers Care Data Compiler Name Role Phone Amos Thomas MD Primary Care Provider [phone] Sarah Singh MD Unavailable [phone] Allergies Active Allergy Reactions Criticality Noted Date Comments Meperidine Nausea And Vomiting,Vomiting Low 05/31/2016 Sulfa (Sulfonamide Antibiotics) Itching,Other (See comments) Low 09/21/2024 As a child Medications multivitamin,tx-ir af-Ys-EF-min 27-0.4 mg tablet Take by mouth Active [...] female, estrogen receptor positive 09/17/2024 Hypertension 04/18/2011 Encounters Date Type Department Care Team Description 01/19/2025 Telephone [facility] Surgery [address] [place] [phone] Kehinde Weaver 11/26/2024 Telephone [facility] Surgery [address] [place] [phone] Kehinde Weaver 11/26/2024 Orders Only [facility] Surgery [address] [place] [phone] Madison Paula MD PhD Malignant neoplasm of lower-outer quadrant of left breast of female, estrogen receptor positive (HCC) (Primary Dx) 11/24/2024 1:00 PM CDT Office Visit [facility] Surgery [address] [place] [phone] Madison Paula MD PhD Malignant neoplasm of lower-outer quadrant of left breast of female, estrogen receptor positive (HCC) (Primary Dx) 11/11/2024 4:02 PM CDT Anesthesia Event [facility] Operating [facility] ([facility]) [address] [place] [phone] Norma Watt MD Brake, Barbara E., NP 11/11/2024 3:25 PM CDT - 11/11/2024 5:20 PM CDT Surgery [facility] Operating Room [facility] ([facility]) [address] [place] [phone] Aft, Madison Lozano MD PhD MASTECTOMY SIMPLE 11/11/2024 1:56 PM CDT - 11/12/2024 10:19 AM CDT Hospital Encounter [address] [phone] Chai, Madison Lozaon MD PhD Malignant neoplasm of lower-outer quadrant of left breast of female, estrogen receptor positive (HCC) Discharge Disposition: Discharge to home or self care 11/11/2024 6:45 AM CDT - 11/11/2024 11:59 PM CDT Hospital Encounter [facility] ([facility]) [address] [place] [phone] Encounter for other preprocedural examination Discharge Disposition: Discharge to home or self care 11/10/2024 Telephone [facility] Surgery [address] [place] [phone] Chai, Madison Lozano MD PhD Surgery Confirmation 11/09/2024 Telephone [facility] Surgery [address] [place] [phone] Madison Paula MD PhD Surgery Confirmation 11/05/2024 Orders Only [facility] Oncology [address] [place] [phone] Robina Luis RN from Last 3 Months Immunizations Immunization Administration Dates Next Due Influenza, Quad, Adjuvantate d, Intramuscular 06/26/2021,05/12/2020 Influenza, Quadrivalent, Hig h Dose, Preservative Free, Intrr 05/05/2023,04/30/2022,05/28/2020,05/25 Influenza, Trivalent, Adjuva nted, Intramuscular 05/17/2018 Influenza, Trivalent, High D ose, Split, Preservative Free, Intramuscular 06/09/2024,05/21/2019,05/05/2017,05/13,05/21/2015,05/20/2014 Pneumococcal Conjugate PCV 13 05/21/2015 Surgical History Surgery Date Site/Laterality Comments TUBAL LIGATION tubaligation KNEE SURGERY 07/28/2013 - 07/27/2014 knee repair HYSTERECTOMY BREAST BIOPSY 08/28/2024 - 09/24/2024 Left BREAST SOFT TISSUE MARKER PLACEMENT LEFT 09/30/2024 Left COLONOSCOPY a couple - last one over a year ago Medical History Medical History Date Comments Hypertension Underweight Arthritis Breathing problem Family History Medical History Relation Name Comments Stroke Father Stroke; Diabetes Mother Diabetes mellit us; Anesthesia problems Neg Hx Relation Name Status Comments Father Mother Social History Tobacco Use Types Packs/Day Years [...] on file 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 Gender Identity Not on file Sexual Orientation Not on file Obstetrics History Last Filed Vital Signs Vital Sign Reading [...] 11/24/2024 1:03 PM CDT Plan of Treatment Health Maintenance Due Date Last Done Comments Depression Screening 1945 Hepatitis C Screening 1945 Osteoporosis Screening-Bone Density Scan 1945 DTaP/Tdap/Td Vaccine (1 - Tdap) 1958 Hepatitis B Screening 1965 Zoster Vaccine (1 of 2) 1966 Lung Cancer Screening 1997 Well Visit 65+ 02/28/2012 Pneumococcal vaccine 65+ (2 of 2 - PPSV23) 07/16/2015 05/21/2015 Covid-19 Vaccine (2 - Jansse n risk series) 10/27/2020 09/29/2020 Fall Risk Assessment 11/12/2025 11/12/2024 Influenza Vaccine Completed 06/09/2024, , 04/30/2022, Additional history exists Medical Devices Implanted Type Area Radiological Technologist Device Identifier Shelf Expiration Date Model / Serial / Lot Bluespec Marker Tissue Needle Delivery Spiral Capped Seed Radiopaque Fdc Stainless Steel Low Nickel Sentimag [id number] - [id number] Implanted:Qty: 1 on 09/30/2024 by Iwona Edwards MD at [facility] Left: Axilla [employer] [id number] 02/24/2026 [id number] Procedures Procedure Name Priority Date/Time Associated Diagnosis [...] Special Needs Senitmag needed day of surgery [place] AN PROCEDURE PLACEHOLDER Routine 11/11/2024 4:23 PM CDT [place] AN ELECTIVE ENDOTRACHEAL AIRWAY Routine 11/11/2024 4:23 PM CDT [place] AN PROCEDURE PLACEHOLDER Routine 11/11/2024 3:48 PM CDT [place] AN PROCEDURE PLACEHOLDER Routine 11/11/2024 3:47 PM [...] CDT Comment:SPECIMEN A SENT WITH PCT NICHOLE KO, SPECIMEN B DROPPED OFF AT SPEL BY RN Tissue specimen (specimen) (Lymph node, sentinel breast) 11/11/2024 5:09 PM CDT Comment:SPECIMEN A SENT WITH PCT NICHOLE RAYMO, SPECIMEN B DROPPED OFF AT SPEL BY RN Narrative PATHOLOGY [facility] - 11/17/2024 3:33 PM CDT EPIC results best viewed via link to PDF [facility] [place] [address] Note to Patients: This report may contain [...] Gender: F : 1945 (Age: 79) Address: [address] [place], [place] [phone] Hospital #: [id number] Taken:11/11/2024 Received:11/11/2024 Reported: 11/17/2024 Patient Type: [facility] OP In Bed Service: Surgery Location: [place] [address] Physician(s): Yonathan Ruvalcaba M.D. Michael C. Adams, [...] Labeled left breast stitch axillary tail -Collected: 1703 on 11/11/2024 -Received: 1726 on 11/11/2024 -Placed in formalin: 1732 on 11/11/2024 -Cold ischemic time: 30 minutes [...] localization clip; B2-sectioned lymph node. Jar 1. 11/12/2024 09:07 PA(s): Mireille Bernard MS, PA ([facility]) CANCER CASE SUMMARY FOR INVASIVE CARCINOMA OF THE BREAST Procedure: Total mastectomy (including nipple-sparing and skin-sparing) Lymph node sampling: [place] lymph node(s) Specimen laterality: Left Tumor site invasive carcinoma: Lower outer quadrant Nipple Histologic type of invasive carcinoma: Invasive ductal carcinoma (no special type or not otherwise specified) Tumor size: Greatest dimension: 55mm Histologic grade (Ridgeway Histologic Score): Tubular differentiation: Score 3 Nuclear [...] mm Extranodal extension: Present, 2mm or less [place] node evaluation: H&E, multiple levels Response to [...] Breast Biomarker Testing performed on Previous Case: [id number] Estrogen Receptor (ER): Positive Soraida score 8/8 [...] Surgical Pathology and Flow Cytometry Departments at [facility] as part of an ongoing quality reviewer program and in compliance with federally mandated [...] Surgical Pathology and Flow Cytometry Departments of [facility]. It has not been cleared or approved by the U. S. Food and Drug Administration. IMAGES AND SCANNED DOCUMENTS, IF INCLUDED, ONLY VIEWABLE IN PDF VERSION OF REPORT Madison Paula MD PhD LAB PATHOLOGY ORDERABLES F inal Result PATHOLOGY [facility] 3rd Floor [place], [place] [phone] * IL AN ELECTIVE ENDOTRACHEAL AIRWAY, [place] AN PROCEDURE PLACEHOLDER (11/11/2024 4:23 PM CDT) Narrative Clifton Blackburn CRNA - 11/11/2024 4:23 PM CDT Clifton Blackburn CRNA 11/11/2024 4:27 PM Airway Patient location: OR Urgency: elective Date/time: 11/11/2024 4:10 PM Indications for airway management: anesthesia Difficult airway: no Staff: Supervising provider: Norma Watt MD Placed by: MANAGING CONSULTANT: Clifton Blackburn CRNA Emergent airway documentation: Risks [...] MD ANESTHESIA ORDERABLES Fin al Result * [place] AN PROCEDURE PLACEHOLDER (11/11/2024 3:48 PM CDT) [...] ORDERABLES Abhi tammie Result - Final * [place] AN PROCEDURE PLACEHOLDER (11/11/2024 3:47 PM CDT) [...] patient tolerated procedure well with no complications us Norma Watt MD ANESTHESIA ORDERABLES Abhi tammie [...] specimen. Electronically signed by: Latricia Alva M.D. us Madison Paula MD PhD IMG MAMMO PROCEDURES [...] of Race in Diagnosing Kidney Disease, JASN 2020). The CKD-EPI equation should not be used for patients with unstable renal function and has not been validated in children and those over 70. Current interpretive data was last reviewed 2021. Blood 11/11/2024 2:07 PM CDT 11/11/2024 2:54 PM CDT us Gisell Schultz SINGLE STAYER OPERATOR LAB BLOOD ORDERABLES Final R esult [facility] Department [place] [address] * (ABNORMAL) Comprehensive metabolic panel (11/11/2024 2:07 PM CDT) Sodium 134(L) 135 - 145 mmol/L Potassium, pl 3.5 3.3 - 4.9 mmol/L [facility] Chloride 94(L) 97 - 110 mmol/L [facility] CO2 26 22 - 32 mmol/L [facility] Anion gap 14 2 - 15 mmol/L [facility] BUN 8 6 - 25 mg/dL [facility] Creatinine 0.57(L) 0.60 - 1.10 mg/dL [facility] Glucose 133 70 - 199 mg/dL [facility] Comment: Interpretive Data Fasting glucose >/= [...] 2022. Calcium 9.9 8.5 - 10.3 mg/dL [facility] Bilirubin, total 0.4 0.1 - 1.2 mg/dL [facility] Protein, pl 7.6 6.5 - 8.5 g/dL [facility] Albumin 4.1 3.5 - 5.0 g/dL [facility] Alk phos 84 40 - 130 Units/L [facility] ALT 12 7 - 45 Units/L [facility] AST 23 10 - 45 Units/L [facility] Blood 11/11/2024 2:07 PM CDT 11/11/2024 2:54 PM CDT Gisell Schultz NP LAB BLOOD ORDERABLES Final R esult [facility] Department [place] [address] from Last 3 Months Insurance [facility] MEDICARE ADVANTAGE [place] [id number] [place] [id number] Advance Directives For more information, please contact: [phone] * Full Code (Latest Code Status on File) Date Activated Date Inactivated Comments 11/11/2024 8:25 PM 11/12/2024 2:24 PM Care Teams Data Compiler Relationship Specialty Start Date End Date Amos Thomas MD PCP - General 07/04/14 Sarah Singh MD [address] [facility] DIV IM MEDICAL ONCOLOGY, [place] [address] [place] [address] Medical Oncologist/Video Operator Medical Oncology 08/31/24
== END 2025-02-03 14:12 | disposition home or self-care (01) ==
PROVIDERS: PCP Internal Medicine; Visit Provider Radiology Radiation Oncology
DX: C50.912 Malignant neoplasm of unspecified site of left female breast (principal); J43.9 Emphysema, unspecified; R59.0 Localized enlarged lymph nodes
CPT/HCPCS: 78815; A9552